=== PATIENT | male | born 1945 | race Caucasian/White ===

== ENCOUNTER → 2016-12-23 | Outpatient (CLI) | payer MEDICARE, OTHER ==
[~2016-12-23] MED LIST: AMIT25TA9 PO; AMLO5TAB2 PO; ATEN-60 PO; ATO40T PO; CALC0.25 OR; CALC500T87 OR; CLOP75TA28 PO; ESOM40CA39 OR; FURO20TA PO; INSLANTI SC; LISI10TA6 OR; METF-312 OR; MYCO500T PO; PROGRAF PO; TACR1CAP4 PO; [UNRECOGNIZED DRUG - OTHER]; [UNRECOGNIZED DRUG - OTHER] PO; [UNRECOGNIZED DRUG - OTHER] PO
== END | disposition home or self-care (01) ==
LOC: Rad HDHVI 13:49
PROVIDERS: ATTEND Internal Medicine Cardiovascular Disease
DX: Z01.810 Encounter for preprocedural cardiovascular examination (principal); I10 Essential (primary) hypertension; I73.89 Other specified peripheral vascular diseases; Z94.1 Heart transplant status; E78.00 Pure hypercholesterolemia, unspecified; J98.11 Atelectasis; I70.0 Atherosclerosis of aorta; Z95.1 Presence of aortocoronary bypass graft
CPT/HCPCS: 71020; 93306

== ENCOUNTER → 2017-02-09 | Outpatient (CLI) | payer MEDICARE, OTHER ==
[~2017-02-09] VITALS: Ht 175.3 cm; Wt 111.1 kg
[~2017-02-09] MED LIST changes: +LOSA50TA6 PO; +OMEG100062 PO; +SERT-274 PO
[2017-02-09 11:10] VITALS: BP 153/95
[2017-02-09 11:45] VITALS: BP 165/98
[2017-02-09 16:24] LABS: Basophils # (auto) 0 uL; Basophils % (auto) 0.4 % (0.0-2.0); Eosinophils # (auto) 0.1 uL; Eosinophils % (auto) 1.2 % (0.0-7.0); Hematocrit 41.6 % (41.0-53.0); Hemoglobin 13.8 g/dL (13.5-17.5); Lymphocytes # (auto) 1.6 uL; Lymphocytes % (auto) 19.9 % (10.0-50.0); Mean Corpuscular Hemoglobin 31.3 pg (28.0-32.0); Mean Corpuscular Hgb Conc. 33.2 g/dL (32.0-36.0); Mean Corpuscular Volume 94.2 fL (80.0-100.0); Mean Platelet Volume 8.7 fL (7.4-10.4); Monocytes # (auto) 0.6 uL; Monocytes % (auto) 7.5 % (0.0-12.0); Neutrophils # (auto) 5.6 uL; Platelet Count (auto) 216 10^3/uL (140-450); Red Cell Distribution Width 15.3 % (11.6-16.0); White Blood Cell 7.8 10^3/uL (4.4-10.8)
[2017-02-09 16:43] LABS: Calcium 8.5 mg/dL (8.5-10.1); Potassium 4.7 mmol/L (3.5-5.1)
[2017-02-09 17:21] LABS: INR 1.05 (0.9-1.15); Prothrombin Time 10.8 sec (9.37-12.3)
== END | disposition home or self-care (01) ==
LOC: CHF HDHVI 10:51
PROVIDERS: ATTEND Internal Medicine Cardiovascular Disease
DX: I10 Essential (primary) hypertension (principal); D64.9 Anemia, unspecified; R79.1 Abnormal coagulation profile
CPT/HCPCS: 36415; 71020; 80048; 84153; 85025; 85610; 85730; 93005; G0463

== ENCOUNTER → 2017-02-10 | Outpatient (CLI) | payer MEDICARE, OTHER ==
[~2017-02-10] MED LIST changes: -AMIT25TA9 PO; -AMLO5TAB2 PO; -ATO40T PO; -CALC0.25 OR; -FURO20TA PO; -LISI10TA6 OR; -METF-312 OR; -PROGRAF PO; -[UNRECOGNIZED DRUG - OTHER] PO; -[UNRECOGNIZED DRUG - OTHER] PO
== END | disposition home or self-care (01) ==
LOC: CATH 09:48
PROVIDERS: ATTEND Internal Medicine Cardiovascular Disease
DX: G45.9 Transient cerebral ischemic attack, unspecified (principal); I10 Essential (primary) hypertension; E11.9 Type 2 diabetes mellitus without complications; M25.519 Pain in unspecified shoulder
CPT/HCPCS: 93880

== ENCOUNTER 2017-02-12 08:45 | Inpatient (IN) | payer MEDICARE, OTHER ==
[~2017-02-12] VITALS: Ht 175.3 cm; Wt 106.0 kg
[2017-02-12] MEDS ORDERED: ANGIOMAX 250 MG VIAL IV ONE (09:55)
[2017-02-12] MEDS ORDERED: IOHEXOL 350 MG/ML 100ML IJ ONE (09:56)
[2017-02-12] MEDS ORDERED: LIDOCAINE 2%HCL (LOCAL ANESTH.) INJ 20ML MDV ONE (09:56)
[2017-02-12] MEDS ORDERED: MIDAZOLAM HCL 1MG/1ML-2 ML VIAL ONE (09:57)
[2017-02-12] MEDS ORDERED: fentaNYL CITRATE 100 MCG/2 ML VL ONE (09:58)
[2017-02-12] MEDS ORDERED: SODIUM CHL 0.9% 50 ML ONE (10:01)
[2017-02-12] MEDS ORDERED: ZOLPIDEM TARTRATE 5 MG TAB PO PRN (13:15)
[2017-02-12] MEDS ORDERED: MORPHINE SULF INJ 2 MG/ML SYRINGE 1ML IV PRN (13:15)
[2017-02-12] MEDS ORDERED: SODIUM CHLORIDE 0.9% 1,000 ML IV SCH (13:15)
[2017-02-12] MEDS ORDERED: DEXTROSE (50%) 50ML SYRG IV PRN (13:15)
[2017-02-12] MEDS ORDERED: NITROGLYCERIN 0.4 MG SL TAB SL PRN ×2 (13:15)
[2017-02-12] MEDS ORDERED: TICAGRELOR 90 MG TAB PO ONE (13:15)
[2017-02-12] MEDS ORDERED: ONDANSETRON HCL 4 MG/2 ML VIAL IV PRN (13:15)
[2017-02-12] MEDS ORDERED: LORazepam 0.5 MG TAB PO PRN (13:15)
[2017-02-12] MEDS ORDERED: HYDROcodone-ACET 5/325MG TAB PO PRN (13:15)
[2017-02-12] MEDS ORDERED: ACETAMINOPHEN 500 MG TAB PO PRN (13:15)
[2017-02-12] MEDS ORDERED: SERTRALINE HCL 50 MG TAB PO ONE (13:30)
[2017-02-12] MEDS ORDERED: amLODIPine BESYLATE 5 MG TAB PO ONE (13:30)
[2017-02-12] MEDS ORDERED: PANTOPRAZOLE 40 MG TAB PO ONE (13:30)
[2017-02-12] MEDS ORDERED: LOSARTAN POTASSIUM 50 MG TAB PO ONE (13:30)
[2017-02-12] MEDS ORDERED: ATENOLOL 25 MG TAB PO ONE (13:30)
[2017-02-12] MEDS ORDERED: TACROLIMUS 1 MG CAP PO ONE (13:30)
[2017-02-12] MEDS ORDERED: MYCOPHENOLATE 500 MG TAB PO ONE (13:30)
[2017-02-12] MEDS ORDERED: INSULIN DETEMIR(LEVEMIR) 1unit/0.01ml Soln (100units/ml) SC ONE (13:30)
[2017-02-12] MEDS ORDERED: CALCIUM W/VIT D (600MG/400IU) TAB PO ONE (13:30)
[2017-02-12] MEDS: ACCU-CHEK COMFORT CURVE STRIP VI SCH ×2 (17:00→21:42)
[2017-02-12] MEDS: TACROLIMUS 1 MG CAP PO SCH (18:00)
[2017-02-12] MEDS: InsuLIN REG 1unit/0.01ml Soln (100units/ml) SC SCH (18:03)
[2017-02-12] MEDS: CALCIUM W/VIT D (600MG/400IU) TAB PO SCH (21:38)
[2017-02-12] MEDS: MYCOPHENOLATE 250 MG CAP PO SCH (21:39)
[2017-02-12] MEDS: TICAGRELOR 90 MG TAB PO SCH (21:39)
[2017-02-12 21:48] VITALS: BP 144/87
[2017-02-12] MEDS ORDERED: MYCOPHENOLATE 500 MG TAB PO SCH (22:00)
[2017-02-12] MEDS ORDERED: CALCIUM CARBONATE 600 MG OR SCH (22:00)
[2017-02-12] MEDS ORDERED: PATIENTS OWN MEDICATION (Omega-3 Fatty Acids (Fish Oil) 1,000 MG) PO SCH (22:00)
[2017-02-12] MEDS ORDERED: InsuLIN REG 1unit/0.01ml Soln (100units/ml) SC SCH (22:00)
[2017-02-13 04:37] VITALS: BP 144/85
[2017-02-13] MEDS: ACCU-CHEK COMFORT CURVE STRIP VI SCH ×3 (06:30→12:22)
[2017-02-13] MEDS: InsuLIN REG 1unit/0.01ml Soln (100units/ml) SC SCH ×3 (06:50→12:19)
[2017-02-13] MEDS ORDERED: TACROLIMUS 1 MG CAP PO SCH (07:00)
[2017-02-13 08:00] VITALS: BP 135/81
[2017-02-13 09:01] VITALS: BP 135/81
[2017-02-13] MEDS ORDERED: FUROSEMIDE 40 MG/4 ML VIAL IV ONE (09:30)
[2017-02-13] MEDS ORDERED: ALBUTEROL SULF 2.5 MG/0.5ML(0.5%) NEB SOLN NEB PRN (09:30)
[2017-02-13] MEDS ORDERED: INSULIN GLARGINE 40 UNIT SC SCH (10:00)
[2017-02-13] MEDS ORDERED: SERTRALINE HCL 50 MG TAB PO SCH (10:00)
[2017-02-13] MEDS ORDERED: PATIENTS OWN MEDICATION (Esomeprazole Magnesium Trihydr (Nexium) 40 MG) OR SCH (10:00)
[2017-02-13] MEDS ORDERED: PANTOPRAZOLE 40 MG TAB PO SCH (10:00)
[2017-02-13] MEDS ORDERED: INSULIN DETEMIR(LEVEMIR) 1unit/0.01ml Soln (100units/ml) SC SCH (10:00)
[2017-02-13] MEDS: amLODIPine BESYLATE 5 MG TAB PO SCH ×2 (10:09→10:49)
[2017-02-13] MEDS: CALCIUM W/VIT D (600MG/400IU) TAB PO SCH (10:10)
[2017-02-13] MEDS: LOSARTAN POTASSIUM 50 MG TAB PO SCH ×2 (10:11→10:49)
[2017-02-13] MEDS: ATENOLOL 25 MG TAB PO SCH ×2 (10:11→10:49)
[2017-02-13] MEDS: MYCOPHENOLATE 250 MG CAP PO SCH (10:12)
[2017-02-13] MEDS: TICAGRELOR 90 MG TAB PO SCH (10:12)
[2017-02-13] MEDS: TACROLIMUS 1 MG CAP PO SCH (12:22)
[2017-02-13 12:39] VITALS: BP 135/81
== END 2017-02-13 13:04 | disposition home or self-care (01) | DRG 247 ==
LOC: CATH 08:45 → TELE-EAST 08:46
PROVIDERS: ADMIT Internal Medicine Cardiovascular Disease; ATTEND Internal Medicine Cardiovascular Disease
PROC: 027034Z Dilation of Coronary Artery, One Artery with Drug-eluting Intraluminal Device, Percutaneous Approach (ICD-10-PCS; principal; 2017-02-12)
PROC: B2111ZZ Fluoroscopy of Multiple Coronary Arteries using Low Osmolar Contrast (ICD-10-PCS; 2017-02-12)
PROC: 4A023N7 Measurement of Cardiac Sampling and Pressure, Left Heart, Percutaneous Approach (ICD-10-PCS; 2017-02-12)
DX: T86.298 Other complications of heart transplant (principal); I25.811 Atherosclerosis of native coronary artery of transplanted heart without angina pectoris; E11.21 Type 2 diabetes mellitus with diabetic nephropathy; E11.40 Type 2 diabetes mellitus with diabetic neuropathy, unspecified; I73.9 Peripheral vascular disease, unspecified; E78.5 Hyperlipidemia, unspecified; I10 Essential (primary) hypertension; Z87.891 Personal history of nicotine dependence
CPT/HCPCS: 36415; 71010; 82565; 82962; 84484; 94640; J1815; J2250; J7507; J7517

== ENCOUNTER → 2017-03-04 | Outpatient (CLI) | payer MEDICARE, OTHER | END | disposition home or self-care (01) | LOC: Rad HDHVI 10:16 | PROVIDERS: ATTEND Internal Medicine Cardiovascular Disease | DX: I50.43 Acute on chronic combined systolic (congestive) and diastolic (congestive) heart failure (principal); I25.5 Ischemic cardiomyopathy | CPT/HCPCS: 93306 ==

== ENCOUNTER → 2017-07-09 | Outpatient (CLI) | payer MEDICARE, OTHER ==
[2017-07-09 12:52] LABS: Albumin 3.7 g/dL (3.4-5.0); Alkaline Phosphatase 93 U/L (45-117); Anion Gap 7 (5-15); Aspartate Aminotransferase 21 U/L (15-37); BUN/Creatinine Ratio 21.6; Bilirubin, Direct < 0.1 mg/dL (0-0.2); Bilirubin, Total 0.4 mg/dL (0.2-1.0); Blood Urea Nitrogen 47 mg/dL (7-18); Calcium 8.8 mg/dL (8.5-10.1); Carbon Dioxide 26 mmol/L (21-32); Chloride 106 mmol/L (98-107); Cholesterol 208 mg/dL (< 200); GFR African American 39 mL/min; GFR Non-African American 32 mL/min; Glucose 231 mg/dL (74-106); HDL Cholesterol 33 mg/dL (40-59); LDL Cholesterol 133 mg/dL (< 100); Magnesium 1.9 mg/dL (1.6-2.6); Potassium 5.2 mmol/L (3.5-5.1); Sodium 139 mmol/L (136-145); Total Protein 7.2 g/dL (6.4-8.2); Triglycerides 304 mg/dL (< 150)
[2017-07-09 14:03] LABS: Basophils # (auto) 0 uL; Basophils % (auto) 0.3 % (0.0-2.0); CONDITION Y; Eosinophils # (auto) 0.1 uL; Eosinophils % (auto) 1.2 % (0.0-7.0); Hematocrit 40.3 % (41.0-53.0); Hemoglobin 13.4 g/dL (13.5-17.5); Lymphocytes # (auto) 1.7 uL; Lymphocytes % (auto) 25.1 % (10.0-50.0); Mean Corpuscular Hemoglobin 32.5 pg (28.0-32.0); Mean Corpuscular Hgb Conc. 33.2 g/dL (32.0-36.0); Mean Corpuscular Volume 97.7 fL (80.0-100.0); Mean Platelet Volume 9.1 fL (7.4-10.4); Monocytes # (auto) 0.5 uL; Monocytes % (auto) 7.4 % (0.0-12.0); Neutrophils # (auto) 4.5 uL; Platelet Count (auto) 283 10^3/uL (140-450); Red Cell Distribution Width 14.8 % (11.6-16.0); White Blood Cell 6.8 10^3/uL (4.4-10.8)
== END | disposition home or self-care (01) ==
LOC: Rad HDHVI 09:23
PROVIDERS: ATTEND Internal Medicine Cardiovascular Disease
DX: I11.0 Hypertensive heart disease with heart failure (principal); I50.22 Chronic systolic (congestive) heart failure; E78.00 Pure hypercholesterolemia, unspecified; K74.1 Hepatic sclerosis; R53.81 Other malaise; R94.4 Abnormal results of kidney function studies; D64.9 Anemia, unspecified; R06.01 Orthopnea
CPT/HCPCS: 36415; 80048; 80061; 80076; 82550; 83735; 84403; 85025; 93306

== ENCOUNTER → 2017-07-15 | Outpatient (CLI) | payer MEDICARE, OTHER ==
[2017-07-15 09:00] VITALS: BP 180/108
[2017-07-15 10:32] LABS: Potassium 5.1 mmol/L (3.5-5.1)
[2017-07-15 11:00] VITALS: BP 169/96
== END | disposition home or self-care (01) ==
LOC: CHF HDHVI 09:16
PROVIDERS: ATTEND Internal Medicine Cardiovascular Disease
DX: E87.5 Hyperkalemia (principal); R94.4 Abnormal results of kidney function studies
CPT/HCPCS: 36415; 82565; 84132; 84520; G0463

== ENCOUNTER → 2017-12-23 | Outpatient (CLI) | payer MEDICARE, OTHER ==
[~2017-12-23] VITALS: Ht 30.5 cm; Wt 0.5 kg
[~2017-12-23] MED LIST changes: +ADENOSINE 90 MG/30 ML INJ IV ONE; +ADENOSINE 91 MG in GIVE UN-DILUTED 0 ML IV ONE
== END | disposition home or self-care (01) ==
LOC: Rad HDHVI 09:24
PROVIDERS: ATTEND Internal Medicine Cardiovascular Disease
DX: I11.0 Hypertensive heart disease with heart failure (principal); I50.9 Heart failure, unspecified; I74.3 Embolism and thrombosis of arteries of the lower extremities; I49.5 Sick sinus syndrome; G62.9 Polyneuropathy, unspecified; E11.9 Type 2 diabetes mellitus without complications; E78.00 Pure hypercholesterolemia, unspecified; Z94.1 Heart transplant status
CPT/HCPCS: 78452; 93005; 93306; 93926; 96374; 96375; A9500; J0153

== ENCOUNTER → 2018-03-24 | Outpatient (CLI) | payer MEDICARE, OTHER ==
[~2018-03-24] MED LIST changes: -ADENOSINE 90 MG/30 ML INJ IV ONE; -ADENOSINE 91 MG in GIVE UN-DILUTED 0 ML IV ONE; +ATEN50TA PO; +AZIL40TA3 PO; +CALC-440 PO; +FENO54TA4 PO; +GABA300C10 PO; +INSU100I25 SC; +INSU1INJ14 SC; +LOSA100T27 PO; +MYCO250C PO
[2018-03-24 10:55] VITALS: BP 151/85
[2018-03-24 11:30] VITALS: BP 129/78
[2018-03-24 16:04] LABS: Basophils # (auto) 0 uL; Basophils % (auto) 0.6 % (0.0-2.0); Eosinophils # (auto) 0.1 uL; Hematocrit 37.3 % (41.0-53.0); Hemoglobin 11.8 g/dL (13.5-17.5); Lymphocytes # (auto) 1.6 uL; Lymphocytes % (auto) 23.3 % (10.0-50.0); Mean Corpuscular Hemoglobin 31.1 pg (28.0-32.0); Mean Corpuscular Hgb Conc. 31.6 g/dL (32.0-36.0); Mean Corpuscular Volume 98.2 fL (80.0-100.0); Monocytes # (auto) 0.6 uL; Monocytes % (auto) 8.2 % (0.0-12.0); Neutrophils # (auto) 4.7 uL; Neutrophils % (auto) 66.9 % (37.0-80.0); Nucleated Red Blood Cells % 0.4 %; Platelet Count (auto) 286 10^3/uL (140-450); White Blood Cell 7.1 10^3/uL (4.4-10.8)
[2018-03-24 16:07] LABS: Calcium 9.3 mg/dL (8.5-10.1)
[2018-03-24 16:09] LABS: BUN/Creatinine Ratio 17.2
[2018-03-24 16:12] LABS: INR 1.05 (0.9-1.15); Partial Thromboplastin Time 28.5 sec (22.64-33.71); Prothrombin Time 11.5 sec (9.37-12.3)
[2018-03-24 16:28] LABS: Potassium 5.7 mmol/L (3.5-5.1)
== END | disposition home or self-care (01) ==
LOC: Rad HDHVI 09:57
PROVIDERS: ATTEND Internal Medicine Cardiovascular Disease
DX: Z01.818 Encounter for other preprocedural examination (principal); I73.9 Peripheral vascular disease, unspecified; E11.9 Type 2 diabetes mellitus without complications; I10 Essential (primary) hypertension; Z87.891 Personal history of nicotine dependence; Z94.1 Heart transplant status
CPT/HCPCS: 36415; 71046; 80048; 85025; 85610; 85730; 93005; G0463; 93926

== ENCOUNTER 2018-04-01 10:53 | Day surgery (SDC) | payer MEDICARE, OTHER ==
[~2018-04-01] VITALS: Ht 175.3 cm; Wt 99.8 kg
[~2018-04-01 10:53] MED LIST changes: -ATEN-60 PO; -CALC500T87 OR; -INSLANTI SC; -LOSA50TA6 PO; -MYCO500T PO; -OMEG100062 PO; -[UNRECOGNIZED DRUG - OTHER]
[2018-04-01] MEDS ORDERED: LIDOCAINE 2%HCL (LOCAL ANESTH.) INJ 20ML MDV ONE (12:39)
[2018-04-01] MEDS ORDERED: IOHEXOL 350 MG/ML 100ML IJ ONE (12:39)
[2018-04-01] MEDS ORDERED: ANGIOMAX 250 MG VIAL IV ONE (13:13)
[2018-04-01] MEDS ORDERED: SODIUM CHL 0.9% 0 ML ONE (13:14)
[2018-04-01] MEDS ORDERED: MIDAZOLAM HCL 1MG/1ML-2 ML VIAL ONE (13:14)
[2018-04-01] MEDS ORDERED: fentaNYL CITRATE 100 MCG/2 ML VL ONE (13:14)
[2018-04-01] MEDS ORDERED: IODIXANOL 320MG/ML 100ML BTL IV ONE (13:16)
[2018-04-01] MEDS ORDERED: diphenhdrAMINE HCL 50 MG/1 ML VL ONE (13:20)
[2018-04-01] MEDS ORDERED: VERAPAMIL 2.5MG/ML INJ 2ML VIAL IV ONE (13:31)
[2018-04-01] MEDS ORDERED: cloNIDine HCL 0.1 MG TAB PO ONE (15:00)
[2018-04-01] MEDS ORDERED: CLOPIDOGREL BISULFATE 75 MG TAB PO ONE (15:00)
== END 2018-04-01 16:00 | disposition home or self-care (01) ==
LOC: CATH 10:53
PROVIDERS: ATTEND Internal Medicine Cardiovascular Disease
DX: I70.201 Unspecified atherosclerosis of native arteries of extremities, right leg (principal); I99.8 Other disorder of circulatory system; T85.898A Other specified complication of other internal prosthetic devices, implants and grafts, initial encounter; J44.9 Chronic obstructive pulmonary disease, unspecified; I10 Essential (primary) hypertension; E78.5 Hyperlipidemia, unspecified; E66.9 Obesity, unspecified; I50.9 Heart failure, unspecified; T86.90 Unspecified complication of unspecified transplanted organ and tissue; Y83.9 Surgical procedure, unspecified as the cause of abnormal reaction of the patient, or of later complication, without mention of misadventure at the time of the procedure; Y92.9 Unspecified place or not applicable; Z95.5 Presence of coronary angioplasty implant and graft; Z94.1 Heart transplant status; Z68.32 Body mass index [BMI] 32.0-32.9, adult
CPT/HCPCS: 36247; 82962; C1769; C1894; J1200; J1644; J2250; J3010; J7030; Q9967; 99152; 99153

== ENCOUNTER → 2018-09-07 | Outpatient (CLI) | payer MEDICARE, OTHER ==
[~2018-09-07] MED LIST changes: +LOSA-49 PO; -LOSA100T27 PO
== END | disposition home or self-care (01) ==
LOC: Rad HDHVI 09:30
PROVIDERS: ATTEND Internal Medicine Cardiovascular Disease
DX: I67.2 Cerebral atherosclerosis (principal); G45.9 Transient cerebral ischemic attack, unspecified
CPT/HCPCS: 70450; 93880

== ENCOUNTER → 2019-02-14 | Outpatient (CLI) | payer MEDICARE, OTHER | END | disposition home or self-care (01) | LOC: Rad HDHVI 16:23 | PROVIDERS: ATTEND Internal Medicine Cardiovascular Disease | DX: I70.0 Atherosclerosis of aorta (principal); I11.0 Hypertensive heart disease with heart failure; J90 Pleural effusion, not elsewhere classified | CPT/HCPCS: 71046 ==

== ENCOUNTER → 2019-02-16 | Outpatient (CLI) | payer MEDICARE, OTHER | END | disposition home or self-care (01) | LOC: Rad HDHVI 11:08 | PROVIDERS: ATTEND Internal Medicine Cardiovascular Disease | DX: J44.9 Chronic obstructive pulmonary disease, unspecified (principal); I50.23 Acute on chronic systolic (congestive) heart failure; I51.7 Cardiomegaly; Z94.1 Heart transplant status | CPT/HCPCS: 83880; 93306; 93880 ==

== ENCOUNTER 2019-04-19 07:12 | Inpatient (IN) | payer MEDICARE, OTHER | END 2019-05-06 17:15 | disposition home or self-care (01) | LOC: TELE-WESTW 04-28 18:32 → ICU WEST 04-20 01:29 → TELE-WESTW 05-04 22:45 → ER 07:12 → TELE 11:01 → ICU WEST 23:30 | PROC: 5A1955Z Respiratory Ventilation, Greater than 96 Consecutive Hours (ICD-10-PCS; principal; ~2019-04-19) | PROC: 0BH17EZ Insertion of Endotracheal Airway into Trachea, Via Natural or Artificial Opening (ICD-10-PCS; ~2019-04-19) | PROC: 05H533Z Insertion of Infusion Device into Right Subclavian Vein, Percutaneous Approach (ICD-10-PCS; ~2019-04-19) | DX: A41.9 Sepsis, unspecified organism (principal); I50.43 Acute on chronic combined systolic (congestive) and diastolic (congestive) heart failure; J96.01 Acute respiratory failure with hypoxia; J96.02 Acute respiratory failure with hypercapnia; N17.0 Acute kidney failure with tubular necrosis; G93.41 Metabolic encephalopathy; I50.21 Acute systolic (congestive) heart failure; J18.9 Pneumonia, unspecified organism; I13.0 Hypertensive heart and chronic kidney disease with heart failure and stage 1 through stage 4 chronic kidney disease, or unspecified chronic kidney disease; E87.2 Acidosis; G93.1 Anoxic brain damage, not elsewhere classified; I25.811 Atherosclerosis of native coronary artery of transplanted heart without angina pectoris; N18.4 Chronic kidney disease, stage 4 (severe); D64.9 Anemia, unspecified; E11.22 Type 2 diabetes mellitus with diabetic chronic kidney disease; E11.42 Type 2 diabetes mellitus with diabetic polyneuropathy; E87.5 Hyperkalemia; E11.41 Type 2 diabetes mellitus with diabetic mononeuropathy; E66.9 Obesity, unspecified; E83.39 Other disorders of phosphorus metabolism; E87.6 Hypokalemia; Z79.02 Long term (current) use of antithrombotics/antiplatelets; Z79.899 Other long term (current) drug therapy; Z95.1 Presence of aortocoronary bypass graft; T45.1X5A Adverse effect of antineoplastic and immunosuppressive drugs, initial encounter; N18.9 Chronic kidney disease, unspecified ==

== ENCOUNTER → 2019-05-13 | Outpatient (CLI) | payer MEDICARE, OTHER ==
[~2019-05-13] MED LIST changes: +ASPI81TA27 PO; -ATEN50TA PO; +ATOR40TA52 PO; -AZIL40TA3 PO; +CARV25TA PO; -FENO54TA4 PO; +FURO20TA PO; -LOSA-49 PO; +MAGNTAB16 PO
[2019-05-13 16:09] LABS: Potassium 5.2 mmol/L (3.5-5.1)
[2019-05-13 16:16] LABS: Albumin 2.7 g/dL (3.4-5.0); BUN/Creatinine Ratio 19.4; Bilirubin, Total 0.2 mg/dL (0.2-1.0); Calcium 8.2 mg/dL (8.5-10.1); Total Protein 6.3 g/dL (6.4-8.2)
[2019-05-13 16:17] LABS: Basophils # (auto) 0 uL; Basophils % (auto) 0.5 % (0.0-2.0); Eosinophils # (auto) 0.2 uL; Eosinophils % (auto) 2.7 % (0.0-7.0); Hematocrit 29.5 % (41.0-53.0); Hemoglobin 9.5 g/dL (13.5-17.5); Lymphocytes # (auto) 1.6 uL; Lymphocytes % (auto) 27.8 % (10.0-50.0); Mean Corpuscular Hemoglobin 29.1 pg (28.0-32.0); Mean Corpuscular Volume 90.8 fL (80.0-100.0); Monocytes # (auto) 0.5 uL; Monocytes % (auto) 8.4 % (0.0-12.0); Neutrophils # (auto) 3.4 uL; Neutrophils % (auto) 60.6 % (37.0-80.0); Platelet Count (auto) 184 10^3/uL (140-450); Red Blood Cells 3.25 10^6/uL (4.5-5.90); Red Cell Distribution Width 15.6 % (11.8-14.3); White Blood Cell 5.7 10^3/uL (4.4-10.8)
== END | disposition home or self-care (01) ==
LOC: Rad HDHVI 14:24
PROVIDERS: ATTEND Internal Medicine Cardiovascular Disease
DX: D64.9 Anemia, unspecified (principal); I11.0 Hypertensive heart disease with heart failure; I50.9 Heart failure, unspecified; I25.10 Atherosclerotic heart disease of native coronary artery without angina pectoris; R00.2 Palpitations
CPT/HCPCS: 36415; 80053; 85025; 93306

== ENCOUNTER → 2019-05-17 | Outpatient (CLI) | payer MEDICARE, OTHER ==
[~2019-05-17] MED LIST changes: +KAYEXALATE PO ONE; +MAGNESIUM CITRATE SOLUTION 300 ML BTL ONE; +MAGNESIUM CITRATE SOLUTION 300 ML BTL PO ONE; +SODIUM POLYSTYRENE SULF 15GM/60ml SUSP or POWDER ONE
--- NOTE | 2019-05-17 10:30 | NUR ---
2 PERSON ASSIST TO RECLINER CHAIR. DYSPNEIC. LIPS DUSKY. IN ATTENDANCE. SPO2 ON ROOM AIR IS 88%.
--- NOTE | 2019-05-17 10:40 | NUR ---
RESPIRATIONS EVEN AND NON LABORED. OXYGEN IN USE AT 2 LPM. SPO2 94%. VS WNL. CLINIC PROVIDER CONSULTED AND ORDERS RECIEVED. IV PLACED TO RIGHT AC 20 GAUGE, LABS DRAWN AND SENT.
[2019-05-17 11:48] LABS: Basophils # (auto) 0 uL; Basophils % (auto) 0.8 % (0.0-2.0); Eosinophils # (auto) 0.1 uL; Eosinophils % (auto) 1.6 % (0.0-7.0); Hematocrit 32.8 % (41.0-53.0); Hemoglobin 10.3 g/dL (13.5-17.5); Lymphocytes # (auto) 1.2 uL; Lymphocytes % (auto) 19.9 % (10.0-50.0); Mean Corpuscular Hgb Conc. 31.3 g/dL (32.0-36.0); Mean Corpuscular Volume 92.8 fL (80.0-100.0); Monocytes # (auto) 0.5 uL; Monocytes % (auto) 8.1 % (0.0-12.0); Neutrophils # (auto) 4.1 uL; Neutrophils % (auto) 69.6 % (37.0-80.0); Platelet Count (auto) 186 10^3/uL (140-450); Red Blood Cells 3.54 10^6/uL (4.5-5.90); Red Cell Distribution Width 15.7 % (11.8-14.3)
[2019-05-17 11:52] LABS: Calcium 8.7 mg/dL (8.5-10.1)
[2019-05-17 11:58] LABS: Albumin 3.1 g/dL (3.4-5.0); BUN/Creatinine Ratio 19.5; Bilirubin, Total 0.3 mg/dL (0.2-1.0); Magnesium 1.8 mg/dL (1.6-2.6); Total Protein 6.8 g/dL (6.4-8.2)
[2019-05-17 13:28] LABS: Potassium 5.8 mmol/L (3.5-5.1)
[2019-05-17 13:50] VITALS: BP 193/84
--- NOTE | 2019-05-17 14:00 | NUR ---
CHF LABS RETURNED AND REVIEWED BY CLINIC PROVIDER. DISCHARGED TO HOME WITH IN ATTENDANCE . IN NO DISTRESS OR DISCOMFORT. Discharge Instructions See e-MAR for any mediations given with this visit. Patient education given on disease process. Patient verbalized understanding. Previous labs reviewed. Patient discharged in stable condition with after care instructions and follow up appointment FOR Thursday05/20/19. MEDICATION ADMINISTRATION KEXALATE 30 GRAMS PO AT 1350 MAG CITRATE 1/2 BOTTLE PO AT 1230
[2019-05-17 16:56] LABS: Urine Blood Negative /uL (Negative); Urine Specific Gravity 1.014 (1.001-1.035)
== END | disposition home or self-care (01) ==
LOC: Rad HDHVI 10:50
PROVIDERS: ATTEND Internal Medicine Cardiovascular Disease
DX: I70.0 Atherosclerosis of aorta (principal); E55.9 Vitamin D deficiency, unspecified; D64.9 Anemia, unspecified; E11.21 Type 2 diabetes mellitus with diabetic nephropathy; E29.1 Testicular hypofunction; I11.0 Hypertensive heart disease with heart failure; I50.9 Heart failure, unspecified; N39.0 Urinary tract infection, site not specified
CPT/HCPCS: 36415; 71046; 80053; 81003; 82306; 83036; 83735; 83880; 84403; 85025; G0463

== ENCOUNTER → 2019-05-20 | Outpatient (CLI) | payer MEDICARE, OTHER ==
[~2019-05-20] VITALS: Ht 1 cm; Wt 0.5 kg
[~2019-05-20] MED LIST changes: +ALBUTEROL SULF 2.5 MG/0.5ML(0.5%) NEB SOLN NEB ONE; +ALBUTEROL SULF 2.5 MG/0.5ML(0.5%) NEB SOLN ONE; +ALLO100T PO; +ALPR0.25 PO; +AMLO5TAB15 PO; +ASPI-404 PO; -ASPI81TA27 PO; +CYANOCOBALAMIN (B-12) 1000 MCG/1 ML VIAL IM ONE; +CYANOCOBALAMIN (B-12) 1000 MCG/1 ML VIAL ONE; +DOCU100T15 PO; +FERR-20 PO; +FLUT250M2 INH; +FURO1TAB33 PO; -FURO20TA PO; +FUROSEMIDE 100 MG/10ML VIAL IV ONE; +FUROSEMIDE 40 MG/4 ML VIAL ONE; +GABA-339 PO; +HYDR-4296 PO; +ISO60SRT PO; -KAYEXALATE PO ONE; -MAGNESIUM CITRATE SOLUTION 300 ML BTL ONE; -MAGNESIUM CITRATE SOLUTION 300 ML BTL PO ONE; +PRE5T PO; +SODIUM ZIRCONIUM CYCL 10 GM PAK ONE; +SODIUM ZIRCONIUM CYCL 10 GM PAK PO ONE
--- NOTE | 2019-05-20 07:58 | NUR ---
PT. TO CHF CLINIC FOR EVAL. AND TX. WT. DOWN 7 LBS. AFTER COMBINATION OF KAYEXALATE AND MAG CITRATE. LAST BM LAST NOC. PT. STATES HE IS FEELING BETTER. NOTED ELEVATION IN B/P, WITH STATING HE HAS TAKEN HIS AM MEDS AT 0630. ORDERS RECEIVED AND CARRIED OUT.
--- NOTE | 2019-05-20 08:10 | NUR ---
IV insertion IV access obtained, via clean sterile technique by inserting 20 gauge catheter at [LFT AC after [1] attempt(s). IV secured properly. No trauma to site. Patient tolerated procedure well. STAT LABS DRAWN AND SENT.
--- NOTE | 2019-05-20 08:42 | NUR ---
MEDS: PT. MEDICATED WITH VIT. B12 1000MCG IM PER MD ORDER.
[2019-05-20 09:22] LABS: Basophils # (auto) 0 uL; Basophils % (auto) 0.4 % (0.0-2.0); Eosinophils # (auto) 0.1 uL; Eosinophils % (auto) 2.4 % (0.0-7.0); Hematocrit 32.9 % (41.0-53.0); Hemoglobin 10.5 g/dL (13.5-17.5); Lymphocytes # (auto) 1.1 uL; Lymphocytes % (auto) 21.9 % (10.0-50.0); Mean Corpuscular Hemoglobin 28.8 pg (28.0-32.0); Mean Corpuscular Hgb Conc. 31.9 g/dL (32.0-36.0); Mean Corpuscular Volume 90.3 fL (80.0-100.0); Monocytes # (auto) 0.5 uL; Monocytes % (auto) 10.2 % (0.0-12.0); Neutrophils # (auto) 3.3 uL; Neutrophils % (auto) 65.1 % (37.0-80.0); Platelet Count (auto) 207 10^3/uL (140-450); Red Blood Cells 3.64 10^6/uL (4.5-5.90); Red Cell Distribution Width 15.6 % (11.8-14.3)
[2019-05-20 09:41] LABS: Magnesium 2.1 mg/dL (1.6-2.6)
[2019-05-20 09:44] LABS: BUN/Creatinine Ratio 16.4; Bilirubin, Total 0.4 mg/dL (0.2-1.0); Total Protein 7.1 g/dL (6.4-8.2)
--- NOTE | 2019-05-20 10:02 | NUR ---
WAITING ON LABS. TACHYPNEA NOTED. OXYGEN APPLIED 2 LPM AND MED NEB ADMINISTERED PER MD ORDER.
[2019-05-20 10:08] LABS: Potassium 6.3 mmol/L (3.5-5.1)
--- NOTE | 2019-05-20 10:45 | NUR ---
STAT LABS RETURNED AND ORDERS RECIEVED AND CARRIED OUT.
--- NOTE | 2019-05-20 11:00 | NUR ---
START IV FLUID TO LEFT AC.
--- NOTE | 2019-05-20 12:44 | NUR ---
LASIX IVP ADMINISTERED.
[2019-05-20 14:03] VITALS: BP 193/90
--- NOTE | 2019-05-20 14:03 | NUR ---
CHF IV TO LEFT AC DCD AND SITE BENIGN POST USE. AFFECT CHEERFUL AND WITHOUT DISTRESS. MEDICATION ADMINISTRATION VIT B12 1000 MCG IM TO LEFT DELTOID PERFORMIST MED NEB 10 MG VIA NEBULIZER OVER 15 MINUTES 0.9 NS 250 ML/HR X 2 HOURS START AT 1100/STOP AT 1300 LOKELMA 2 PACKET TONIGHT ENTRESTO SMPLE 03/01/15
--- NOTE | 2019-07-27 10:52 | NUR ---
LATE ENTRY ADDENDUM FOR 05/20/19 VISIT. KAYEXALATE NOT ADMINISTERED. ATTEMPTED TO PULL, PYXIS COUNTED ONE BUT ACTUAL COUNT AVAILABLE WAS ZERO. LOKELMA ADMINISTERED INSTEAD
== END | disposition home or self-care (01) ==
LOC: CHF HDHVI 08:09
PROVIDERS: ATTEND Internal Medicine Cardiovascular Disease
DX: I13.0 Hypertensive heart and chronic kidney disease with heart failure and stage 1 through stage 4 chronic kidney disease, or unspecified chronic kidney disease (principal); E11.22 Type 2 diabetes mellitus with diabetic chronic kidney disease; N18.4 Chronic kidney disease, stage 4 (severe); I50.23 Acute on chronic systolic (congestive) heart failure; I25.10 Atherosclerotic heart disease of native coronary artery without angina pectoris; I25.2 Old myocardial infarction; E87.5 Hyperkalemia; E83.40 Disorders of magnesium metabolism, unspecified; D64.9 Anemia, unspecified; J44.9 Chronic obstructive pulmonary disease, unspecified; E78.5 Hyperlipidemia, unspecified; E11.21 Type 2 diabetes mellitus with diabetic nephropathy; E11.51 Type 2 diabetes mellitus with diabetic peripheral angiopathy without gangrene; J96.11 Chronic respiratory failure with hypoxia; J96.12 Chronic respiratory failure with hypercapnia; E03.9 Hypothyroidism, unspecified; E66.9 Obesity, unspecified; Z95.1 Presence of aortocoronary bypass graft; Z79.899 Other long term (current) drug therapy; Z87.891 Personal history of nicotine dependence; Z99.81 Dependence on supplemental oxygen; Z79.02 Long term (current) use of antithrombotics/antiplatelets; Z90.49 Acquired absence of other specified parts of digestive tract; Z95.5 Presence of coronary angioplasty implant and graft
CPT/HCPCS: 36415; 71046; 80053; 83735; 83880; 84132; 85025; 94640; 96372; 96374; G0463; J1940; J3420; J7050; J7611; 96360; 96375

== ENCOUNTER → 2019-05-23 | Outpatient (CLI) | payer MEDICARE, OTHER ==
[~2019-05-23] MED LIST changes: -ALBUTEROL SULF 2.5 MG/0.5ML(0.5%) NEB SOLN NEB ONE; -ALBUTEROL SULF 2.5 MG/0.5ML(0.5%) NEB SOLN ONE; -ALLO100T PO; -ALPR0.25 PO; -AMLO5TAB15 PO; -CYANOCOBALAMIN (B-12) 1000 MCG/1 ML VIAL IM ONE; -CYANOCOBALAMIN (B-12) 1000 MCG/1 ML VIAL ONE; -DOCU100T15 PO; -FERR-20 PO; -FLUT250M2 INH; -FUROSEMIDE 100 MG/10ML VIAL IV ONE; +FUROSEMIDE 40 MG/4 ML VIAL IV ONE; -GABA-339 PO; -HYDR-4296 PO; -ISO60SRT PO; -PRE5T PO; +SODIUM CHLORIDE 0.9% 500 ML IV SCH; -SODIUM POLYSTYRENE SULF 15GM/60ml SUSP or POWDER ONE
--- NOTE | 2019-05-23 08:00 | NUR ---
IN TO CLINIC FOR FOLLOWUP FROM HYPERKALEMIA ON THURSDAY. PT REPORTS GOOD RESULTS FROM TREATMENT AND STAT LABS DRAWN AND SENT. AWAIT RESULTS. APPLY OXYGEN AT 2 LPM FOR COMFORT.
[2019-05-23 08:50] VITALS: BP 140/63
[2019-05-23 09:17] LABS: Potassium 5.1 mmol/L (3.5-5.1)
--- NOTE | 2019-05-23 10:00 | NUR ---
LABS RETURNED. CLINIC PROVIDER CONSULTED AND ORDERS RECEIVED AND CARRIED OUT.
--- NOTE | 2019-05-23 10:22 | NUR ---
IV insertion IV access obtained, via clean sterile technique by inserting 22 gauge catheter at [RIGHT AC after [1] attempt(s). IV secured properly. No trauma to site. Patient tolerated procedure well.
[2019-05-23 13:00] VITALS: BP 180/95
--- NOTE | 2019-05-23 13:30 | NUR ---
CHF Discharge Instructions See e-MAR for any mediations given with this visit. Patient education given on disease process. Patient verbalized understanding. Previous labs reviewed. Patient discharged in stable condition with after care instructions and follow up appointment FOR Thursday05/25/19 MEDICATION ADMINISTRATION LOKELMA 10 GRAM PO WITH WATER 0.9 NS 250 ML/HR START AT 1035/STOP AT 1236 (TOTAL 500 ML ADMINISTERED) FUROSEMIDE 40 MG IVP AT 1215
== END | disposition home or self-care (01) ==
LOC: CHF HDHVI 08:05
PROVIDERS: ATTEND Internal Medicine Cardiovascular Disease
DX: I13.0 Hypertensive heart and chronic kidney disease with heart failure and stage 1 through stage 4 chronic kidney disease, or unspecified chronic kidney disease (principal); E11.22 Type 2 diabetes mellitus with diabetic chronic kidney disease; I50.42 Chronic combined systolic (congestive) and diastolic (congestive) heart failure; N18.4 Chronic kidney disease, stage 4 (severe); I25.10 Atherosclerotic heart disease of native coronary artery without angina pectoris; E87.5 Hyperkalemia; R94.4 Abnormal results of kidney function studies; J44.9 Chronic obstructive pulmonary disease, unspecified; J96.10 Chronic respiratory failure, unspecified whether with hypoxia or hypercapnia; E11.21 Type 2 diabetes mellitus with diabetic nephropathy; E03.9 Hypothyroidism, unspecified; E66.9 Obesity, unspecified; E11.41 Type 2 diabetes mellitus with diabetic mononeuropathy; E11.51 Type 2 diabetes mellitus with diabetic peripheral angiopathy without gangrene; Z95.1 Presence of aortocoronary bypass graft; Z95.5 Presence of coronary angioplasty implant and graft; Z79.02 Long term (current) use of antithrombotics/antiplatelets; Z79.899 Other long term (current) drug therapy
CPT/HCPCS: 36415; 82565; 83880; 84132; 84520; 96361; 96374; G0463; J1940; J7040; 96360; 96375

== ENCOUNTER → 2019-05-25 | Outpatient (CLI) | payer MEDICARE, OTHER ==
[2019-05-25] VITALS (8 sets, daily range): BP systolic 173–203; BP diastolic 77–97
[~2019-05-25] MED LIST changes: +ALLO100T PO; +ALPR0.25 PO; +AMLO5TAB15 PO; +DOCU100T15 PO; +FERR-20 PO; +FLUT250M2 INH; -FUROSEMIDE 40 MG/4 ML VIAL IV ONE; -FUROSEMIDE 40 MG/4 ML VIAL ONE; +GABA-339 PO; +HYDR-4296 PO; +ISO60SRT PO; +LIDOCAINE 1% (LOCAL ANESTH.) PF 5ml SDV ONE; +LIDOCAINE 1% HCL (LOCAL ANESTH.) INJ 20ML MDV ID ONE; +PRE5T PO; -SODIUM ZIRCONIUM CYCL 10 GM PAK ONE; -SODIUM ZIRCONIUM CYCL 10 GM PAK PO ONE; +TRIAMCINOLONE 40MG/ML 1ML VIAL IX ONE; +TRIAMCINOLONE 40MG/ML 1ML VIAL ONE
--- NOTE | 2019-05-25 07:50 | NUR ---
PT. TO CHF CLINIC FOR EVAL. AND TX. NEW ORDERS FOR LABS AND IV HYDRATION RECEIVED AND CARRIED OUT. SEE NSG ASSESS.
--- NOTE | 2019-05-25 08:10 | NUR ---
IV insertion IV access obtained, via clean sterile technique by inserting 22 gauge catheter at after attempt(s). IV secured properly. No trauma to site. Patient tolerated procedure well. LABS DRAWN AND SENT.
--- NOTE | 2019-05-25 08:15 | NUR ---
MEDS: .9NS STARTED AT 250 CC/HR. PER MD ORDER.
[2019-05-25 08:47] LABS: Basophils # (auto) 0 uL; Basophils % (auto) 0.5 % (0.0-2.0); Eosinophils # (auto) 0.1 uL; Eosinophils % (auto) 1.7 % (0.0-7.0); Lymphocytes # (auto) 1.3 uL; Lymphocytes % (auto) 23.1 % (10.0-50.0); Mean Corpuscular Hgb Conc. 32.3 g/dL (32.0-36.0); Mean Corpuscular Volume 89.7 fL (80.0-100.0); Monocytes # (auto) 0.5 uL; Monocytes % (auto) 9.5 % (0.0-12.0); Neutrophils # (auto) 3.7 uL; Neutrophils % (auto) 65.2 % (37.0-80.0); Platelet Count (auto) 223 10^3/uL (140-450); Red Blood Cells 3.46 10^6/uL (4.5-5.90); Red Cell Distribution Width 15.4 % (11.8-14.3); White Blood Cell 5.6 10^3/uL (4.4-10.8)
[2019-05-25 08:58] LABS: BUN/Creatinine Ratio 26.8; Calcium 8.5 mg/dL (8.5-10.1); Potassium 4.9 mmol/L (3.5-5.1)
--- NOTE | 2019-05-25 09:44 | NUR ---
CALIBRATED HOME CUFF TO DYNAMAP CUFF AND BP IN CLINIC. 2 BPS COMPARED TO 2 BPS. DETERMINED TO BE WNL, ONLY DISCREPANCY IS USE OF XTRA LARGE CUFF IN CLINIC.
--- NOTE | 2019-05-25 11:45 | NUR ---
DR RÍOS IN TO SEE PATIENT TO BACK OFFICE. ADMINISTERED KENALOG AND LIDOCAINE INTRARTICULAR TO LEFT HAND MIDDLE FINGER. PT TOLERATED FAIR.
--- NOTE | 2019-05-25 11:55 | NUR ---
CHF MEDICATION ADMINISTRATION 0.9 NS 250 ML X 2 HOURS START AT 0815/STOP AT 1010 (TOTAL 500 ML) KENALOG [address] RÍOS AT 1145 LIDOCAINE 1% [address] RÍOS AT 1145 NEW RX FOR IMDUR 60 MG PO BID SENT TO [facility] IN [place]. PT INSTRUCTED TO TAKE ONE TABLET ONLY IN AM DAILY AND MONITOR BLOOD PRESSURE UNTIL FOLLOWUP ON Thursday06/01/19. REPEAT BACK INSTRUCTIONS OBTAINED
--- NOTE | 2019-05-25 12:00 | NUR ---
CHF Discharge Instructions See e-MAR for any mediations given with this visit. Patient education given on disease process. Patient verbalized understanding. Previous labs reviewed. Patient discharged in stable condition with after care instructions and follow up appointment FOR Thursday06/01/19
== END | disposition home or self-care (01) ==
LOC: CHF HDHVI 08:02
PROVIDERS: ATTEND Internal Medicine Cardiovascular Disease
DX: I13.0 Hypertensive heart and chronic kidney disease with heart failure and stage 1 through stage 4 chronic kidney disease, or unspecified chronic kidney disease (principal); I50.42 Chronic combined systolic (congestive) and diastolic (congestive) heart failure; N18.4 Chronic kidney disease, stage 4 (severe); K59.00 Constipation, unspecified; D64.9 Anemia, unspecified; R53.83 Other fatigue; I25.10 Atherosclerotic heart disease of native coronary artery without angina pectoris; I25.2 Old myocardial infarction; J44.9 Chronic obstructive pulmonary disease, unspecified; E78.5 Hyperlipidemia, unspecified; E11.22 Type 2 diabetes mellitus with diabetic chronic kidney disease; E11.21 Type 2 diabetes mellitus with diabetic nephropathy; E11.51 Type 2 diabetes mellitus with diabetic peripheral angiopathy without gangrene; J96.11 Chronic respiratory failure with hypoxia; J96.12 Chronic respiratory failure with hypercapnia; E03.9 Hypothyroidism, unspecified; E66.9 Obesity, unspecified; E11.41 Type 2 diabetes mellitus with diabetic mononeuropathy; Z94.1 Heart transplant status; Z95.1 Presence of aortocoronary bypass graft; Z95.5 Presence of coronary angioplasty implant and graft; Z79.899 Other long term (current) drug therapy; Z79.02 Long term (current) use of antithrombotics/antiplatelets; Z87.891 Personal history of nicotine dependence; Z90.49 Acquired absence of other specified parts of digestive tract
CPT/HCPCS: 36415; 80048; 83880; 85025; 96360; 96361; J3301; J7050; 96366; G0463; J2001

== ENCOUNTER → 2019-06-01 | Outpatient (CLI) | payer MEDICARE, OTHER ==
[~2019-06-01] MED LIST changes: -ALLO100T PO; -ALPR0.25 PO; -AMLO5TAB15 PO; -ASPI-404 PO; +ASPI81TA27 PO; -DOCU100T15 PO; -FERR-20 PO; -FLUT250M2 INH; -FURO1TAB33 PO; +FURO20TA PO; -GABA-339 PO; -HYDR-4296 PO; -ISO60SRT PO; -LIDOCAINE 1% (LOCAL ANESTH.) PF 5ml SDV ONE; -LIDOCAINE 1% HCL (LOCAL ANESTH.) INJ 20ML MDV ID ONE; -PRE5T PO; -SODIUM CHLORIDE 0.9% 500 ML IV SCH; +SODIUM POLYSTYRENE SULF 15GM/60ml SUSP or POWDER ONE; +SODIUM POLYSTYRENE SULF 15GM/60ml SUSP or POWDER PO SCH; +SODIUM ZIRCONIUM CYCL 10 GM PAK ONE; +SODIUM ZIRCONIUM CYCL 10 GM PAK PO ONE; -TRIAMCINOLONE 40MG/ML 1ML VIAL IX ONE; -TRIAMCINOLONE 40MG/ML 1ML VIAL ONE
--- NOTE | 2019-06-01 07:48 | NUR ---
CHF PT ARRIVED AT CHF CLINIC FOR TX/F/U. PT A/O X 3 V/S TAKEN STAT LABS DRAWN
[2019-06-01 08:46] VITALS: BP 162/83
[2019-06-01 08:51] LABS: Basophils # (auto) 0 uL; Basophils % (auto) 0.7 % (0.0-2.0); Eosinophils # (auto) 0.1 uL; Eosinophils % (auto) 1.1 % (0.0-7.0); Hematocrit 32.3 % (41.0-53.0); Hemoglobin 10.4 g/dL (13.5-17.5); Lymphocytes # (auto) 1.2 uL; Mean Corpuscular Hemoglobin 28.9 pg (28.0-32.0); Mean Corpuscular Hgb Conc. 32.3 g/dL (32.0-36.0); Mean Corpuscular Volume 89.5 fL (80.0-100.0); Monocytes # (auto) 0.4 uL; Monocytes % (auto) 7.3 % (0.0-12.0); Neutrophils % (auto) 69.9 % (37.0-80.0); Platelet Count (auto) 282 10^3/uL (140-450); Red Blood Cells 3.61 10^6/uL (4.5-5.90); Red Cell Distribution Width 15.8 % (11.8-14.3); White Blood Cell 5.7 10^3/uL (4.4-10.8)
[2019-06-01 08:58] LABS: Anion Gap 9 (5-15); Blood Urea Nitrogen 47 mg/dL (7-18); Carbon Dioxide 25 mmol/L (21-32); Chloride 107 mmol/L (98-107); Glucose 241 mg/dL (74-106); Potassium 5.5 mmol/L (3.5-5.1); Sodium 141 mmol/L (136-145)
[2019-06-01 09:09] LABS: BUN/Creatinine Ratio 18.7; GFR African American 32 mL/min; GFR Non-African American 27 mL/min
--- NOTE | 2019-06-01 10:00 | NUR ---
RX FOR XANAX 0.25 MG PO BID GIVEN TO PT
[2019-06-01 10:20] VITALS: BP 175/84
--- NOTE | 2019-06-01 10:20 | NUR ---
LABS RETURNED AND CLINIC PROVIDER CONSULTED AND ORDERS RECIEVED. IN ATTENDANCE. DISCHARGED WITHOUT DISTRESS OR DISCOMFORT TO CARE OF . Discharge Instructions See e-MAR for any mediations given with this visit. Patient education given on disease process. Patient verbalized understanding. Previous labs reviewed. Patient discharged in stable condition with after care instructions and follow up appointment FOR Thursday06/06/19 MEDICATION ADMINISTRATION LOKELMA 10 GM PO AT 1000, 2 ADDITIONAL DOSES TODAY AT 1500 AND 2100 KAYEXALATE 15 GM PO NOW AT 1000.
== END | disposition home or self-care (01) ==
LOC: CHF HDHVI 08:06
PROVIDERS: ATTEND Internal Medicine Cardiovascular Disease
DX: D64.9 Anemia, unspecified (principal); I11.0 Hypertensive heart disease with heart failure; I50.9 Heart failure, unspecified; I25.10 Atherosclerotic heart disease of native coronary artery without angina pectoris
CPT/HCPCS: 36415; 80048; 83880; 85025; G0463

== ENCOUNTER → 2019-06-06 | Outpatient (CLI) | payer MEDICARE, OTHER ==
[~2019-06-06] MED LIST changes: +SODIUM POLYSTYRENE SULF 15GM/60ml SUSP or POWDER PO ONE; -SODIUM POLYSTYRENE SULF 15GM/60ml SUSP or POWDER PO SCH; -SODIUM ZIRCONIUM CYCL 10 GM PAK ONE; -SODIUM ZIRCONIUM CYCL 10 GM PAK PO ONE; +[UNRECOGNIZED DRUG - OTHER] PO ONE; +cloNIDine HCL 0.1 MG TAB ONE; +cloNIDine HCL 0.1 MG TAB PO ONE
--- NOTE | 2019-06-06 08:05 | NUR ---
CHF PT ARRIVED TO THE CHF CLINIC FOR FOLLOW FOR EVAL AND TX/ VS OBTAINED 0 DISTRESS
--- NOTE | 2019-06-06 08:15 | NUR ---
LABS STAT LABS DRAWN CBC,BMP,BNP
[2019-06-06 09:31] LABS: Basophils # (auto) 0 uL; Basophils % (auto) 0.7 % (0.0-2.0); Eosinophils # (auto) 0 uL; Eosinophils % (auto) 0.8 % (0.0-7.0); Hematocrit 31.9 % (41.0-53.0); Hemoglobin 10.1 g/dL (13.5-17.5); Lymphocytes # (auto) 1.3 uL; Lymphocytes % (auto) 22.3 % (10.0-50.0); Mean Corpuscular Hemoglobin 28.8 pg (28.0-32.0); Mean Corpuscular Hgb Conc. 31.7 g/dL (32.0-36.0); Mean Corpuscular Volume 90.7 fL (80.0-100.0); Monocytes # (auto) 0.4 uL; Monocytes % (auto) 7.6 % (0.0-12.0); Neutrophils # (auto) 4.1 uL; Neutrophils % (auto) 68.6 % (37.0-80.0); Platelet Count (auto) 227 10^3/uL (140-450); Red Blood Cells 3.52 10^6/uL (4.5-5.90); Red Cell Distribution Width 16.2 % (11.8-14.3); White Blood Cell 5.9 10^3/uL (4.4-10.8)
[2019-06-06 09:54] LABS: BUN/Creatinine Ratio 21.5; Calcium 8.3 mg/dL (8.5-10.1); Potassium 5.4 mmol/L (3.5-5.1)
[2019-06-06 10:45] VITALS: BP 190/96
--- NOTE | 2019-06-06 10:45 | NUR ---
Discharge Instructions See e-MAR for any mediations given with this visit. Patient education given on disease process. Patient verbalized understanding. Previous labs reviewed. Patient discharged in stable condition with after care instructions and follow up appointment. MEDICATIONS KAEXYLATE 15 GRAM PO X 1 CLONODINE 0.1 MG PO X 1
== END | disposition home or self-care (01) ==
LOC: CHF HDHVI 08:12
PROVIDERS: ATTEND Internal Medicine Cardiovascular Disease
DX: D64.9 Anemia, unspecified (principal); I11.0 Hypertensive heart disease with heart failure; I50.9 Heart failure, unspecified
CPT/HCPCS: 36415; 80048; 83880; 85025; G0463

== ENCOUNTER → 2019-06-07 | Outpatient (CLI) | payer MEDICARE, OTHER ==
[~2019-06-07] MED LIST changes: -SODIUM POLYSTYRENE SULF 15GM/60ml SUSP or POWDER ONE; -SODIUM POLYSTYRENE SULF 15GM/60ml SUSP or POWDER PO ONE; -[UNRECOGNIZED DRUG - OTHER] PO ONE; -cloNIDine HCL 0.1 MG TAB PO ONE
[2019-06-07 10:00] VITALS: BP 200/95
--- NOTE | 2019-06-07 10:00 | NUR ---
PT. TO CHF CLINIC FOR EVAL. AND TX FOR PERSISTANT UNCONTROLLED HTN, AND ABNORMAL LABS. APPT. HAS BEEN MADE WITH DR. HERNÁNDEZ THIS AM. AT BEDSIDE. NOTED ELEVATION IN B/P 200/95. SEE NSG ASSESS. STAT LABS TO BE DRAWN AND SENT PER MD ORDER.
[2019-06-07 11:29] LABS: Potassium 5.3 mmol/L (3.5-5.1)
--- NOTE | 2019-06-07 11:45 | NUR ---
PT. TO AND FROM DR. HERNÁNDEZ APPT. WITH THIS RN PRESENT WITH STAT LAB RESULTS AND LAB TRENDS REVIEWED WITH DR. HERNÁNDEZ. NEW MED ORDERS RECEIVED AND CARRIED OUT.
--- NOTE | 2019-06-07 12:00 | NUR ---
MEDS: PT. MEDICATED WITH CATAPRESS 0.1MG PO PER MD ORDER. B/P 201/105, 75, 18. NO OTHER C/O BY PT. REMAINS AT CHAIRSIDE.
--- NOTE | 2019-06-07 12:40 | NUR ---
MEDS: PT MEDICATED WITH 2ND CATAPRESS 0.1MG PO PER MD ORDER. B/P 189/103, 74, 18. NAD NOTED.
--- NOTE | 2019-06-07 14:00 | NUR ---
MED REC: NEW RX FOR CLONIDINE 0.1MG Q 4 HRS PRN FOR SBP GREATER THAN 160, HYDROLAZINE 25MG PO Q8 HRS, IMDUR 30 MG PO BID, AND NORVASC 5 MG PO Q DAY CALLED TO PT'S PHARMACY AND EXPLAINED IN DETAIL WITH PT. AND SPOUSE. PT TO STOP ENTRESTO. TO TAKE B/P EVERY 4 HRS AND LOG DATA FOR FOLLOW UP VISIT. VERBALIZED MED REC CHANGES.
[2019-06-07 14:30] VITALS: BP 158/84
--- NOTE | 2019-06-07 14:30 | NUR ---
Discharge Instructions See e-MAR for any mediations given with this visit. Patient education given on disease process. Patient verbalized understanding. Previous labs reviewed. Patient discharged in stable condition with after care instructions and follow up appointment. MANUAL B/P 158/84. PT. WITH NO C/O.
--- NOTE | 2019-06-07 14:30 | NUR ---
Discharge Instructions See e-MAR for any mediations given with this visit. Patient education given on disease process. Patient verbalized understanding. Previous labs reviewed. Patient discharged in stable condition with after care instructions and follow up appointment. MANUAL B/P 158/84 BY THIS RN. PT. WITH NO C/O.
--- NOTE | 2019-06-09 13:32 | NUR ---
MEDS: PT. MEDICATED WITH 3RD CATAPRESS 0.1MG PO PER MD ORDER. 184/100 Addendum: 06/09/19 at 3449 by Lucas Lopez RN [place] THIS IS LATE ENTRY FOR 06/07/19 AT 6349
== END | disposition home or self-care (01) ==
LOC: LAB 10:07
PROVIDERS: ATTEND Internal Medicine Cardiovascular Disease
DX: E87.6 Hypokalemia (principal); R94.4 Abnormal results of kidney function studies; I25.10 Atherosclerotic heart disease of native coronary artery without angina pectoris; I13.0 Hypertensive heart and chronic kidney disease with heart failure and stage 1 through stage 4 chronic kidney disease, or unspecified chronic kidney disease; E11.22 Type 2 diabetes mellitus with diabetic chronic kidney disease; I50.9 Heart failure, unspecified; N18.9 Chronic kidney disease, unspecified; Z79.899 Other long term (current) drug therapy; Z94.1 Heart transplant status
CPT/HCPCS: 36415; 80197; 82542; 82565; 84132; 84520; G0463

== ENCOUNTER → 2019-06-10 | Outpatient (CLI) | payer MEDICARE, OTHER ==
[~2019-06-10] MED LIST changes: +ALLO100T PO; +ALPR0.25 PO; +AMLO5TAB15 PO; +ASPI-404 PO; -ASPI81TA27 PO; +DOCU100T15 PO; +FERR-20 PO; +FLUT250M2 INH; +FURO1TAB33 PO; -FURO20TA PO; +GABA-339 PO; +HYDR-4296 PO; +ISO60SRT PO; +PRE5T PO; +SODIUM CHLORIDE 0.9% 1,000 ML IV SCH; -cloNIDine HCL 0.1 MG TAB ONE
[2019-06-10 09:46] LABS: BUN/Creatinine Ratio 21.7; Calcium 8.4 mg/dL (8.5-10.1)
[2019-06-10 09:58] LABS: Potassium 5.8 mmol/L (3.5-5.1)
[2019-06-10 12:05] VITALS: BP 169/86
--- NOTE | 2019-06-10 12:05 | NUR ---
IN FOR FOLLOWUP FOR HYPERKALEMIA. LABS DRAWN AND SENT. . UPON RETURN OF STAT LABS, CLINIC PROVIDER CONSULTED AND ORDERS RECIEVED AND CARRIED OUT. IV PLACED TO RIGHT AC. STARTED IV FLUIDS AND ADMINISTERED OVER 1 HOUR. NEW RX FOR LOKELMA ORDERED BID. FOLLOWUP ON THURSDAY WITH DR HERNÁNDEZ. MEDICATION ADMINISTRATION 0.9 NS 250ML IV START AT 1100/STOP AT 1200
== END | disposition home or self-care (01) ==
LOC: CHF HDHVI 08:09
PROVIDERS: ATTEND Internal Medicine Cardiovascular Disease
DX: I13.0 Hypertensive heart and chronic kidney disease with heart failure and stage 1 through stage 4 chronic kidney disease, or unspecified chronic kidney disease (principal); I50.23 Acute on chronic systolic (congestive) heart failure; N18.4 Chronic kidney disease, stage 4 (severe); I25.10 Atherosclerotic heart disease of native coronary artery without angina pectoris; I25.2 Old myocardial infarction; J44.9 Chronic obstructive pulmonary disease, unspecified; E78.5 Hyperlipidemia, unspecified; E87.5 Hyperkalemia; E11.22 Type 2 diabetes mellitus with diabetic chronic kidney disease; E11.21 Type 2 diabetes mellitus with diabetic nephropathy; E11.65 Type 2 diabetes mellitus with hyperglycemia; E11.51 Type 2 diabetes mellitus with diabetic peripheral angiopathy without gangrene; J96.11 Chronic respiratory failure with hypoxia; J96.12 Chronic respiratory failure with hypercapnia; E03.9 Hypothyroidism, unspecified; E66.9 Obesity, unspecified; Z95.5 Presence of coronary angioplasty implant and graft; Z90.49 Acquired absence of other specified parts of digestive tract; Z94.1 Heart transplant status; Z95.1 Presence of aortocoronary bypass graft; Z79.02 Long term (current) use of antithrombotics/antiplatelets; Z79.899 Other long term (current) drug therapy; Z87.891 Personal history of nicotine dependence
CPT/HCPCS: 36415; 80048; 83880; 96360; G0463; J7030

== ENCOUNTER → 2019-06-14 | Outpatient (CLI) | payer MEDICARE, OTHER ==
[~2019-06-14] MED LIST changes: -ALLO100T PO; -ALPR0.25 PO; -AMLO5TAB15 PO; -DOCU100T15 PO; -FERR-20 PO; -FLUT250M2 INH; -GABA-339 PO; -HYDR-4296 PO; -ISO60SRT PO; -PRE5T PO; -SODIUM CHLORIDE 0.9% 1,000 ML IV SCH
[2019-06-14 14:00] LABS: BUN/Creatinine Ratio 19.6; Calcium 8.5 mg/dL (8.5-10.1)
== END | disposition home or self-care (01) ==
LOC: CHF HDHVI 09:21
PROVIDERS: ATTEND Internal Medicine Cardiovascular Disease
DX: I70.0 Atherosclerosis of aorta (principal); I11.0 Hypertensive heart disease with heart failure; I50.9 Heart failure, unspecified; J98.4 Other disorders of lung; J90 Pleural effusion, not elsewhere classified; J98.11 Atelectasis
CPT/HCPCS: 36415; 71250; 80048; 83880

== ENCOUNTER → 2019-08-23 | Outpatient (CLI) | payer MEDICARE, OTHER ==
[~2019-08-23] MED LIST changes: +ALLO100T PO; +ALPR0.25 PO; +AMLO5TAB15 PO; +DOCU100T15 PO; +FERR-20 PO; +FLUT250M2 INH; +GABA-339 PO; -GABA300C10 PO; +HYDR-4296 PO; +ISO60SRT PO; +PRE5T PO
[2019-08-23 10:00] VITALS: BP 136/67
--- NOTE | 2019-08-23 10:00 | NUR ---
CHF PT IN CHF CLINIC DARK STOOLS AND FOLLOW UP FROM HOSPITAL VISIT
[2019-08-23 10:30] VITALS: BP 138/75
--- NOTE | 2019-08-23 10:30 | NUR ---
Discharge Instructions See e-MAR for any mediations given with this visit. Patient education given on disease process. Patient verbalized understanding. Previous labs reviewed. Patient discharged in stable condition with after care instructions and follow up appointment.
[2019-08-23 10:50] LABS: Basophils # (auto) 0.1 uL; Basophils % (auto) 0.8 % (0.0-2.0); Eosinophils # (auto) 0 uL; Eosinophils % (auto) 0.7 % (0.0-7.0); Hematocrit 26.2 % (41.0-53.0); Hemoglobin 8.6 g/dL (13.5-17.5); Lymphocytes # (auto) 1.1 uL; Lymphocytes % (auto) 15.7 % (10.0-50.0); Mean Corpuscular Hemoglobin 27.6 pg (28.0-32.0); Mean Corpuscular Hgb Conc. 32.8 g/dL (32.0-36.0); Mean Corpuscular Volume 84.4 fL (80.0-100.0); Monocytes # (auto) 0.6 uL; Monocytes % (auto) 8.1 % (0.0-12.0); Neutrophils # (auto) 5.4 uL; Neutrophils % (auto) 74.7 % (37.0-80.0); Platelet Count (auto) 269 10^3/uL (140-450); Red Cell Distribution Width 18.1 % (11.8-14.3); White Blood Cell 7.2 10^3/uL (4.4-10.8)
== END | disposition home or self-care (01) ==
LOC: Rad HDHVI 09:54
PROVIDERS: ATTEND Internal Medicine Cardiovascular Disease
DX: D64.9 Anemia, unspecified (principal)
CPT/HCPCS: 36415; 85025; G0463

== ENCOUNTER → 2019-08-30 | Outpatient (CLI) | payer MEDICARE, OTHER ==
[~2019-08-30] MED LIST changes: +FURO80TA3 PO; +PRED1PAK7 PO; +cefTRIAXone 1GM/50ML D5W 50 ML IV SCH; +cefTRIAXone SOD 1,000 MG VL ONE
--- NOTE | 2019-08-30 11:56 | NUR ---
CHF PT ARRIVED AT THE CHF CLINIC FOR RESP DISTRESS. PT O2 SATS 79% ON ROOM . PLACED ON 2 LITERS O2 INCREASED TO 93%. OTHER VSS STABLE XRAY ORDERED
[2019-08-30 12:24] LABS: Basophils # (auto) 0 uL; Basophils % (auto) 0.6 % (0.0-2.0); Eosinophils # (auto) 0 uL; Eosinophils % (auto) 0.8 % (0.0-7.0); Hematocrit 26.6 % (41.0-53.0); Hemoglobin 8.7 g/dL (13.5-17.5); Lymphocytes # (auto) 0.7 uL; Lymphocytes % (auto) 12.3 % (10.0-50.0); Mean Corpuscular Hemoglobin 28.4 pg (28.0-32.0); Mean Corpuscular Hgb Conc. 32.6 g/dL (32.0-36.0); Mean Corpuscular Volume 86.9 fL (80.0-100.0); Monocytes # (auto) 0.4 uL; Monocytes % (auto) 7.8 % (0.0-12.0); Neutrophils # (auto) 4.2 uL; Neutrophils % (auto) 78.5 % (37.0-80.0); Nucleated Red Blood Cells % 0.2 %; Platelet Count (auto) 263 10^3/uL (140-450); Red Blood Cells 3.06 10^6/uL (4.5-5.90); Red Cell Distribution Width 19.1 % (11.8-14.3); White Blood Cell 5.4 10^3/uL (4.4-10.8)
[2019-08-30 12:46] LABS: Calcium 8.2 mg/dL (8.5-10.1); Potassium 4.1 mmol/L (3.5-5.1)
[2019-08-30 12:49] LABS: BUN/Creatinine Ratio 31.1; Bilirubin, Total 0.4 mg/dL (0.2-1.0); Total Protein 6.4 g/dL (6.4-8.2)
--- NOTE | 2019-08-30 13:10 | NUR ---
CHF XRAY COMPLETE
--- NOTE | 2019-08-30 13:15 | NUR ---
Clinic Provider Clinic Provider updated with patient status new orders received and carried out.
[2019-08-30 14:00] VITALS: BP 124/74
--- NOTE | 2019-08-30 14:00 | NUR ---
Discharge Instructions See e-MAR for any mediations given with this visit. Patient education given on disease process. Patient verbalized understanding. Previous labs reviewed. Patient discharged in stable condition with after care instructions and follow up appointment. medications MED NEB ROCEPHIN IV
== END | disposition home or self-care (01) ==
LOC: CHF HDHVI 11:00
PROVIDERS: ATTEND Internal Medicine Cardiovascular Disease
DX: I13.2 Hypertensive heart and chronic kidney disease with heart failure and with stage 5 chronic kidney disease, or end stage renal disease (principal); E11.22 Type 2 diabetes mellitus with diabetic chronic kidney disease; N18.5 Chronic kidney disease, stage 5; I50.42 Chronic combined systolic (congestive) and diastolic (congestive) heart failure; R53.83 Other fatigue; I25.10 Atherosclerotic heart disease of native coronary artery without angina pectoris; J44.9 Chronic obstructive pulmonary disease, unspecified; E11.21 Type 2 diabetes mellitus with diabetic nephropathy; E11.51 Type 2 diabetes mellitus with diabetic peripheral angiopathy without gangrene; J96.11 Chronic respiratory failure with hypoxia; J96.12 Chronic respiratory failure with hypercapnia; Z99.81 Dependence on supplemental oxygen; Z79.02 Long term (current) use of antithrombotics/antiplatelets; Z79.82 Long term (current) use of aspirin; Z79.51 Long term (current) use of inhaled steroids; Z79.4 Long term (current) use of insulin; Z79.52 Long term (current) use of systemic steroids; Z79.899 Other long term (current) drug therapy; Z87.891 Personal history of nicotine dependence; Z95.1 Presence of aortocoronary bypass graft; Z95.5 Presence of coronary angioplasty implant and graft; Z86.73 Personal history of transient ischemic attack (TIA), and cerebral infarction without residual deficits
CPT/HCPCS: 36415; 71046; 80053; 83880; 85025; 94640; 96374; G0463; J0696; J7060

== ENCOUNTER → 2019-08-31 | Outpatient (CLI) | payer MEDICARE, OTHER ==
[~2019-08-31] MED LIST changes: +CYANOCOBALAMIN (B-12) 1000 MCG/1 ML VIAL IM ONE; +CYANOCOBALAMIN (B-12) 1000 MCG/1 ML VIAL ONE; +cefTRIAXone 1GM/50ML D5W 50 ML IV ONE; -cefTRIAXone 1GM/50ML D5W 50 ML IV SCH; +cefTRIAXone SOD 1,000 MG VL IV ONE
[2019-08-31 09:00] VITALS: BP_SYST 121; BP_SYST 146; BP_DIAS 76; BP_DIAS 87
--- NOTE | 2019-08-31 09:00 | NUR ---
IN TO CLINIC FOR SECOND DOSE OF IV ANTIBIOTIC. IV ADMINISTRATION TOLERATED WELL. PT OXYGENATING BETTER TODAY. OXYGEN IN USE FROM HOME AND IN BETWEEN CAR AND CLINIC WELL. DISCHARGED TO CARE OF IN NO DISTRESS OR DISCOMFORT. Addendum: 09/20/19 at 1603 by RADHA LEIVA RN ME LATE ENTRY FOR 09/01/19 ROCEPHIN 1 GRAM IVP
== END | disposition home or self-care (01) ==
LOC: CHF HDHVI 08:22
PROVIDERS: ATTEND Internal Medicine
DX: J18.9 Pneumonia, unspecified organism (principal); I13.2 Hypertensive heart and chronic kidney disease with heart failure and with stage 5 chronic kidney disease, or end stage renal disease; E11.22 Type 2 diabetes mellitus with diabetic chronic kidney disease; N18.5 Chronic kidney disease, stage 5; I50.42 Chronic combined systolic (congestive) and diastolic (congestive) heart failure; I25.10 Atherosclerotic heart disease of native coronary artery without angina pectoris; J44.9 Chronic obstructive pulmonary disease, unspecified; J96.12 Chronic respiratory failure with hypercapnia; E11.21 Type 2 diabetes mellitus with diabetic nephropathy; E11.51 Type 2 diabetes mellitus with diabetic peripheral angiopathy without gangrene; J96.11 Chronic respiratory failure with hypoxia; Z99.81 Dependence on supplemental oxygen; Z79.02 Long term (current) use of antithrombotics/antiplatelets; Z79.4 Long term (current) use of insulin; Z79.899 Other long term (current) drug therapy; Z79.51 Long term (current) use of inhaled steroids; Z79.52 Long term (current) use of systemic steroids; Z87.891 Personal history of nicotine dependence; Z95.1 Presence of aortocoronary bypass graft; Z95.5 Presence of coronary angioplasty implant and graft; Z86.73 Personal history of transient ischemic attack (TIA), and cerebral infarction without residual deficits
CPT/HCPCS: 96372; 96374; G0463; J0696; J3420; J7060

== ENCOUNTER → 2019-09-01 | Outpatient (CLI) | payer MEDICARE, OTHER ==
[~2019-09-01] MED LIST changes: -CYANOCOBALAMIN (B-12) 1000 MCG/1 ML VIAL IM ONE; -CYANOCOBALAMIN (B-12) 1000 MCG/1 ML VIAL ONE; -cefTRIAXone SOD 1,000 MG VL IV ONE; -cefTRIAXone SOD 1,000 MG VL ONE
[2019-09-01 09:00] VITALS: BP 136/94
[2019-09-01 09:20] VITALS: BP 136/94
[2019-09-01 09:30] VITALS: BP 136/94
--- NOTE | 2019-09-01 09:30 | NUR ---
IN TO CLINIC WITH IN ATTENDANCE. OXYGEN IN USE. AFFECT TALKATIVE AND CHEERFUL. MEDICATED WITH IV ROCEPHIN OVER 5 MINUTES AFTER LABS DRAWN. TOLERATED WELL. BP BORDERLINE HIGH BUT PT REPORTS JUST TAKING HIS MEDS NOW. DISCHARGED TO SELF CARE WITH IN ATTENDANCE. MEDICATION ADMINISTRATION ROCEPHIN 1 GRAM IVP OVER 5 MINUTES
[2019-09-01 12:33] LABS: Basophils # (auto) 0 uL; Basophils % (auto) 0.9 % (0.0-2.0); Eosinophils # (auto) 0.2 uL; Eosinophils % (auto) 4.5 % (0.0-7.0); Hematocrit 26.3 % (41.0-53.0); Hemoglobin 8.5 g/dL (13.5-17.5); Lymphocytes # (auto) 0.8 uL; Lymphocytes % (auto) 16.7 % (10.0-50.0); Mean Corpuscular Hemoglobin 28.1 pg (28.0-32.0); Mean Corpuscular Hgb Conc. 32.2 g/dL (32.0-36.0); Mean Corpuscular Volume 87.2 fL (80.0-100.0); Monocytes # (auto) 0.6 uL; Monocytes % (auto) 11.5 % (0.0-12.0); Neutrophils # (auto) 3.4 uL; Neutrophils % (auto) 66.4 % (37.0-80.0); Platelet Count (auto) 264 10^3/uL (140-450); Red Blood Cells 3.02 10^6/uL (4.5-5.90); White Blood Cell 5.1 10^3/uL (4.4-10.8)
[2019-09-01 12:52] LABS: Potassium 4.2 mmol/L (3.5-5.1)
[2019-09-01 13:02] LABS: Albumin 2.9 g/dL (3.4-5.0); BUN/Creatinine Ratio 29.2; Bilirubin, Total 0.2 mg/dL (0.2-1.0); Calcium 8.1 mg/dL (8.5-10.1); Magnesium 2.6 mg/dL (1.6-2.6); Total Protein 6.1 g/dL (6.4-8.2)
== END | disposition home or self-care (01) ==
LOC: CHF HDHVI 08:57
PROVIDERS: ATTEND Internal Medicine Cardiovascular Disease
DX: I13.2 Hypertensive heart and chronic kidney disease with heart failure and with stage 5 chronic kidney disease, or end stage renal disease (principal); E11.22 Type 2 diabetes mellitus with diabetic chronic kidney disease; N18.5 Chronic kidney disease, stage 5; I50.32 Chronic diastolic (congestive) heart failure; I25.10 Atherosclerotic heart disease of native coronary artery without angina pectoris; J18.9 Pneumonia, unspecified organism; D64.9 Anemia, unspecified; E83.40 Disorders of magnesium metabolism, unspecified; J96.12 Chronic respiratory failure with hypercapnia; E11.21 Type 2 diabetes mellitus with diabetic nephropathy; E11.51 Type 2 diabetes mellitus with diabetic peripheral angiopathy without gangrene; J44.9 Chronic obstructive pulmonary disease, unspecified; Z99.81 Dependence on supplemental oxygen; Z79.02 Long term (current) use of antithrombotics/antiplatelets; Z79.82 Long term (current) use of aspirin; Z79.52 Long term (current) use of systemic steroids; Z79.51 Long term (current) use of inhaled steroids; Z79.4 Long term (current) use of insulin; Z79.899 Other long term (current) drug therapy; Z87.891 Personal history of nicotine dependence; Z95.1 Presence of aortocoronary bypass graft; Z95.5 Presence of coronary angioplasty implant and graft; Z86.73 Personal history of transient ischemic attack (TIA), and cerebral infarction without residual deficits
CPT/HCPCS: 36415; 80053; 83735; 83880; 85025; 96374; G0463; J0696

== ENCOUNTER → 2019-09-02 | Outpatient (CLI) | payer MEDICARE, OTHER ==
[~2019-09-02] MED LIST changes: -cefTRIAXone 1GM/50ML D5W 50 ML IV ONE
== END | disposition home or self-care (01) ==
LOC: CHF HDHVI 08:32
PROVIDERS: ATTEND Internal Medicine Cardiovascular Disease
DX: I70.0 Atherosclerosis of aorta (principal); J90 Pleural effusion, not elsewhere classified; I11.0 Hypertensive heart disease with heart failure; I50.9 Heart failure, unspecified; J98.11 Atelectasis
CPT/HCPCS: 71046

== ENCOUNTER 2019-09-21 12:35 | Inpatient (IN) | payer MEDICARE, OTHER ==
[~2019-09-21] VITALS: Ht 175.3 cm; Wt 103.7 kg
[~2019-09-21 12:35] MED LIST changes: -FURO80TA3 PO; -PRED1PAK7 PO
--- NOTE | 2019-09-21 12:42 | NUR ---
RECEIVED REPORT FROM STAFF AT DR. RÍOS'S OFFICE.
--- NOTE | 2019-09-21 13:30 | NUR ---
Direct Admit Note KVNG SOTO admitted to Telemetry unit as a direct admit per MD order. Patient oriented to EVERETT BENÍTEZ, primary RN, unit, room, bed, and unit policies regarding patient care and visiting hours. Patient now on continuous telemetry monitoring, tele box # [id number] and telemetry reading on arrival to unit is SINUS RHYTHM IN THE 90s. Patient placed on bedside oxygen, weighed by bedscale and encouraged to call if they need something. All questions and concerns addressed, patient verbalized understanding. MD notified of patients arrival and admit orders received.
[2019-09-21] MEDS ORDERED: LACTULOSE 20Gm/30ML SOLN PO PRN (14:30)
[2019-09-21] MEDS ORDERED: FUROSEMIDE INJECTION 250 MG in SODIUM CHL 0.9% 225 ML IV SCH (14:30)
[2019-09-21] MEDS ORDERED: DEXTROSE (50%) 50ML SYRG IV PRN (14:30)
[2019-09-21] MEDS ORDERED: DOPamine 1600MCG/ML D5W 250 ML IV SCH (14:30)
[2019-09-21 16:24] LABS: BUN/Creatinine Ratio 27.6; Calcium 8.1 mg/dL (8.5-10.1)
[2019-09-21 16:34] VITALS: BP 138/87
[2019-09-21 17:20] VITALS: BP 137/68
[2019-09-21] MEDS: ACCU-CHEK COMFORT CURVE STRIP VI SCH ×2 (17:24→21:28)
[2019-09-21] MEDS: InsuLIN REG 1unit/0.01ml Soln (100units/ml) SC SCH ×2 (17:25→21:28)
--- NOTE | 2019-09-21 18:50 | NUR ---
WOUND PHOTOS TAKEN.
--- NOTE | 2019-09-21 19:30 | NUR ---
OPENING NOTE REPORT RECEIVED FROM DAY SHIFT RN PATIENT IS A/OX4, RESTING IN BED. PATIENT IS ON 10L OXYGEN WITH OXYMIZER IN PLACE, SPO2 AT 93%. PATIENT BECOMES SOB WITH ANY EXERTION. PATIENT RUNNING IV LASIX AT 10ML/HR VIA LEFT AC IV. PENDING A SECOND LINE TO BE PLACED TO START DOPAMINE ORDERED BY MD. SUTURES NOTED TO RIGHT FOREARM AND LEFT SIDE OF FACE NEAR EAR. PATIENT STATES HE HAD SKIN CANCER AND ABOUT A WEEK AGO HAD SOME SKIN REMOVED. SUTURES INTACT, NO OPEN AREAS. PATIENT ALSO HAS SOME SMALL CUTS AND SCRAPES NOTED TO LEFT HAND/FINGERS. PATIENT STATES HE IS A OBRIEN AND ACCIDENTLY CUT HIMSELF A FEW DAYS AGO. PICTURES ALREADY TAKEN BY DAYSHIFT ADMITTING RN. POC DISCUSSED FOR TONIGHT AND ALL QUESTIONS. WILL START SECOND IV LINE FOR PENDING MEDICATION. FALL PRECAUTIONS IN PLACE. ALL BELONGINGS WITHIN REACH, CALL LIGHT WITHIN REACH.
[2019-09-21] MEDS: TACROLIMUS 1 MG CAP PO SCH (19:57)
[2019-09-21 20:01] LABS: Basophils # (auto) 0 uL; Basophils % (auto) 0.3 % (0.0-2.0); Eosinophils # (auto) 0 uL; Eosinophils % (auto) 0.1 % (0.0-7.0); Hematocrit 27.7 % (41.0-53.0); Hemoglobin 8.6 g/dL (13.5-17.5); Lymphocytes # (auto) 0.5 uL; Lymphocytes % (auto) 9.3 % (10.0-50.0); Mean Corpuscular Hemoglobin 28.3 pg (28.0-32.0); Mean Corpuscular Hgb Conc. 31.1 g/dL (32.0-36.0); Mean Corpuscular Volume 90.9 fL (80.0-100.0); Monocytes # (auto) 0.4 uL; Neutrophils # (auto) 4.4 uL; Neutrophils % (auto) 83.3 % (37.0-80.0); Nucleated Red Blood Cells % 0.2 %; Platelet Count (auto) 240 10^3/uL (140-450); Red Blood Cells 3.05 10^6/uL (4.5-5.90); White Blood Cell 5.3 10^3/uL (4.4-10.8)
[2019-09-21 20:04] LABS: Red Cell Distribution Width 20.8 % (11.8-14.3)
--- NOTE | 2019-09-21 20:30 | NUR ---
IV insertion IV access obtained, via clean sterile technique by inserting 22 gauge catheter at RIGHT WRIST after 2 attempt(s). IV secured properly. No trauma to site. Patient tolerated well. WILL START DOPAMINE ORDERED BY MD. SEE EMAR FOR DETAILS
[2019-09-21] MEDS: DOPamine 1600MCG/ML D5W 250 ML IV SCH (20:44)
[2019-09-21] MEDS ORDERED: EPOETIN ALFA 10,000 UNIT/1 ML VIAL SC ONE (21:00)
[2019-09-21] MEDS: MYCOPHENOLATE 250 MG CAP PO SCH (21:14)
[2019-09-21] MEDS: HYDROcodone-ACET 10/325MG TAB PO PRN (21:15)
[2019-09-21] MEDS: ALPRAZolam 0.25 MG TAB PO SCH (21:15)
[2019-09-21] MEDS: CARVEDILOL 12.5 MG TAB PO SCH (21:19)
[2019-09-21] MEDS: INSULIN LANTUS (GLARGINE) 1 /0.01ml (100units/ml) SC SCH (21:29)
--- NOTE | 2019-09-21 21:30 | NUR ---
called pharmacy re: epogen order not in fridge per pharmacist, "tech is on their way"
[2019-09-21 22:00] VITALS: BP 151/72
[2019-09-22] VITALS (40 sets, daily range): BP systolic 98–168; BP diastolic 45–86
--- NOTE | 2019-09-22 01:41 | NUR ---
NON COMPLIANCE FOUND PATIENT WITHOUT OXYMIZER ON. PATIENT DESATURATED IN LOW 80'S. PATIENT STATES "SORRY, I JUST NEED TO GO TO THE BATHROOM". ASSISTED PATIENT TO STAND UP WITH URINAL AND PLACED OXYGEN BACK ON. EDUCATED PATIENT TO KEEP OXYGEN ON AT ALL TIMES. OXYMIZER 10L PLACED BACK ON PATIENT. SPO2 UP TO 91% NOW. PATIENT ENCOURAGED TO TAKE DEEP BREATHS
--- NOTE | 2019-09-22 03:34 | NUR ---
FOUND PATIENT SITTING AT EDGE OF BED WITHOUT OXYGEN AGAIN. EXPLAINED TO PATIENT THE IMPORTANCE OF KEEPING OXYGEN ON AT ALL TIMES. PATIENT DESATURATED DOWN TO 80% ON ROOM AIR. PATIENT PLACED IMMEDIATELY BACK ON OXYMIZER AT 10L. PATIENT ENCOURAGED TO TAKE DEEP BREATHS. PATIENT O2 SATS NOW UP TO 92%
--- NOTE | 2019-09-22 05:36 | NUR ---
CALLED AND GAVE REPORT/SBAR TO KARIME CORBIN PENDING TRANSFER TO 219B, AWAITING FOR ROOM TO BE CLEANED
[2019-09-22] MEDS: TACROLIMUS 1 MG CAP PO SCH ×2 (06:13→18:36)
--- NOTE | 2019-09-22 06:18 | NUR ---
PATIENT MOVED TO ROOM 221A WITH RN SHAQUILLE ALL PERSONAL BELONGINGS TAKEN WITH PATIENT. PATIENT PLACED ON TELE #27 LASIX AND DOPAMINE DRIP VERIFIED WITH RN SHAQUILLE PT STABLE AT TIME OF TRANSPORTATION
--- NOTE | 2019-09-22 06:20 | NUR ---
RECEIVED PATIENT FROM KARIEM EDGE, PATIENT RESTING IN BED. NO S/S OF DISTRESS NOTED. DOPA DRIP AND LASIX DRIP RUNNING WELL ORDERED. BED IN LOWEST POSITION WITH SIDE RAILS UP X 2. CALL HUFF WITHIN REACH. ALARM ON. CONTINUE TO MONITOR.
[2019-09-22 06:21] LABS: Basophils # (auto) 0 uL; Basophils % (auto) 0.3 % (0.0-2.0); Eosinophils # (auto) 0 uL; Eosinophils % (auto) 0.5 % (0.0-7.0); Hematocrit 27.7 % (41.0-53.0); Lymphocytes # (auto) 0.7 uL; Lymphocytes % (auto) 10.6 % (10.0-50.0); Mean Corpuscular Hemoglobin 28.8 pg (28.0-32.0); Mean Corpuscular Hgb Conc. 32.4 g/dL (32.0-36.0); Monocytes # (auto) 0.7 uL; Monocytes % (auto) 11.4 % (0.0-12.0); Neutrophils % (auto) 77.2 % (37.0-80.0); Nucleated Red Blood Cells % 0.1 %; Platelet Count (auto) 261 10^3/uL (140-450); Red Blood Cells 3.11 10^6/uL (4.5-5.90); Red Cell Distribution Width 20.5 % (11.8-14.3); White Blood Cell 6.5 10^3/uL (4.4-10.8)
[2019-09-22 06:38] LABS: % Iron Saturation 5.3 % (20-55)
[2019-09-22 06:39] LABS: Calcium 8.3 mg/dL (8.5-10.1); Potassium 4.9 mmol/L (3.5-5.1)
[2019-09-22] MEDS: ACCU-CHEK COMFORT CURVE STRIP VI SCH ×4 (06:40→22:02)
[2019-09-22 06:41] LABS: BUN/Creatinine Ratio 28.5
[2019-09-22] MEDS: InsuLIN REG 1unit/0.01ml Soln (100units/ml) SC SCH ×4 (06:41→22:02)
--- NOTE | 2019-09-22 06:41 | NUR ---
ACCU-CHECK, BS 96. NO COVERAGE. CONTINUE TO MONITOR.
--- NOTE | 2019-09-22 07:06 | NUR ---
JUST RECEIVED CRITICAL LAB RESULT BUN 120. PASS IT TO DAY SHIFT RN. CHRISTINA TO CALL MD FOR THE CRITICAL. CHRISTINA VERBALIZED UNDERSTANDING. CONTINUE CARE.
--- NOTE | 2019-09-22 07:45 | NUR ---
Opening Shift Note Assumed care of patient, awake but drowsy. pt O2 cannula changed by RT to mask due to low O2 sat, pt satting at 93% on mask. Instructed on POC and to call for assist PRN, will continue to monitor for changes Q1hr and PRN.
[2019-09-22] MEDS: IPRATROPIUM BROM 0.5 MG/2.5ML INH SOL NEB SCH ×3 (07:46→18:38)
--- NOTE | 2019-09-22 07:46 | NUR ---
RESP NOTE: WENT TO PTS ROOM TO ADMINISTER BREATHING TX, PT WAS ON A 10 LPM OXYMIZER, PTS SPO2 83%. ADMINISTERED BREATHING TX, POST TX PLACED PT ON 8 LPM SIMPLE MASK PTS SPO2 92-93%, RN MADE AWARE OF CHANGES WILL CONTINUE TO MONITOR PT.
--- NOTE | 2019-09-22 07:58 | NUR ---
CRITICAL VALUE RECEIVED CRITICAL VALUE FROM NIGHT NURSE, BUN 120, DR. RÍOS NOTIFIED, WAITING FOR CALL BACK.
--- NOTE | 2019-09-22 08:28 | NUR ---
CALLED DR. RÍOS ORDERED HOLD LASIX START NS BOLUS 500CC THEN NS 100ML/HR
[2019-09-22] MEDS ORDERED: SODIUM CHLORIDE 0.9% 500 ML IV ONE (08:30)
--- NOTE | 2019-09-22 08:30 | NUR ---
NS BOLUS NOT STARTED PT IS HAVING SOB.
[2019-09-22] MEDS: ONDANSETRON HCL 4 MG/2 ML VIAL IV PRN (09:06)
[2019-09-22] MEDS: SODIUM CHLORIDE 0.9% 1,000 ML IV SCH ×2 (09:09→18:45)
[2019-09-22] MEDS: predniSONE 20 MG TAB PO SCH (10:38)
[2019-09-22] MEDS: ALLOPURINOL 300 MG TAB PO SCH (10:40)
[2019-09-22] MEDS: SERTRALINE HCL 50 MG TAB PO SCH (10:40)
[2019-09-22] MEDS: ISOSORBIDE MONONITRATE ER 60 MG TAB PO SCH (10:40)
[2019-09-22] MEDS: ALPRAZolam 0.25 MG TAB PO SCH ×2 (10:40→21:43)
[2019-09-22] MEDS: PANTOPRAZOLE 40 MG TAB PO SCH (10:41)
[2019-09-22] MEDS: CLOPIDOGREL BISULFATE 75 MG TAB PO SCH (10:42)
[2019-09-22] MEDS: CARVEDILOL 12.5 MG TAB PO SCH ×2 (10:42→22:01)
[2019-09-22] MEDS: MYCOPHENOLATE 250 MG CAP PO SCH ×2 (10:42→21:43)
--- NOTE | 2019-09-22 12:30 | NUR ---
CALLED CODE ASSIST PT ASLEEP ON BED, PT NOT RESPONDING TO VOICE AND PAINFUL STIMULI, BP 112/53BPM, O2 SAT 76%, PT IS BREATHING WITH O2 MASK AT 10LPM, CODE ASSIST TEAM ARRIVED, BLOOD SUGAR 118MG/DL.
[2019-09-22] MEDS ORDERED: ROCURONIUM 10MG/ML 10ML VIAL IV ONE (12:41)
[2019-09-22] MEDS ORDERED: ETOMIDATE (2MG/ML) 20ML VIAL IV ONE (12:41)
[2019-09-22] MEDS ORDERED: SUCCINYLCHOLINE CHLORIDE 20 MG/ML 10ML VIAL IV ONE (12:42)
--- NOTE | 2019-09-22 12:58 | NUR ---
DR. RÍOS MADE AWARE ABOUT PT'S STATUS.
--- NOTE | 2019-09-22 13:00 | NUR ---
CINTHIA OUTSIDE THE ROOM, MADE AWARE OF PT'S CONDITION, DR. ROSA SPOKE TO THE .
--- NOTE | 2019-09-22 13:10 | NUR ---
Respiratory note: PT INTUBATED BY DR ROSA AT 1248 ON SECOND ATTEMPT, ETT PLACEMENT CONFIRMED WITH GOOD COLOR CHANGE ON ETCO2 COLOR DETECTOR. PT BEGAN TO BECOME BRADYCARDIC, BREATH SOUNDS LOST, AND PULSES LOST. STARTED COMPRESSIONS, REMOVED ET TUBE, BEGAN MANUAL VENTILATION WITH BVM AND MASK. PT INTUBATED AGAIN ON FIRST ATTEMPT BY DR ROSA AT 1257. PT WITH ETT 8.0 AT 26 CM UPPER LIP, SECURED WITH HOLISTER. ROSC ACHIEVED. PLACED PT ON VENT V11 PLUGGED INTO RED OUTLET AND PROPER O2 SOURCE. PLACED ON ORDERED SETTINGS: AC, RR 20, VT 600, PEEP +5, 100%. ABG TO FOLLOW IN ONE HOUR. ETT PLACEMENT CONFIRMED BY BILATERAL CHEST RISE AND LUNG SOUNDS, GOOD COLOR CHANGE ON ETCO2 DETECTOR, ABSENCE OF GASTRIC SOUNDS, AND CXR SHOWS ETT PLACEMENT 5CM ABOVE THE SHER. SPUTUM SAMPLE OBTAINED, SENT TO LAB. PT SEDATED AND UNRESPONSIVE AT THIS TIME. SKIN COOL AND DRY TO TOUCH. KARIME DUMONT AT BEDSIDE. WILL CONTINUE TO MONITOR.
[2019-09-22] MEDS ORDERED: PROPOFOL 100 ML IV ONE ×3 (13:15→18:34)
--- NOTE | 2019-09-22 13:30 | NUR ---
PT ORALLY INTUBATED BY DR ROSA DURING CODE BLUE. CXR DONE AND CONFIRMED OF PLACEMENT. NGT INSERTED AT THE LEFT NARE AND CONNECTED TO LIS. COTO CATH ALSO INSERTED DRAINING CLEAR YELLOW URINE. WILL CONT TO MONITOR PT VITAL SIGNS.
--- NOTE | 2019-09-22 13:30 | NUR ---
REPORT GIVEN TO KARIME DUMONT.
--- NOTE | 2019-09-22 13:40 | NUR ---
SEDATION INITIATED. VITAL SIGNS BP 138/76 HR 82 SPO2 100%.
--- NOTE | 2019-09-22 14:25 | NUR ---
SEEN BY DR RÍOS. AT THE BEDSIDE.
--- NOTE | 2019-09-22 15:10 | NUR ---
Admit to ICU from tele on vent: NOTE: Patient respiratory failure, C02 in the 160's- Dr. Rolon called, patient intubated and during intubation patient went PEA -CPR initiated per report. KVNG SOTO admitted to ICU via gurney on laboratory monitor, intubated and being bagged by Respiratory Therapist. Patient transfered to bed, connected to mechanical ventilator by therapist, BVM at bedside. Patient connected to ICU monitoring, weighed by bedscale, unable to orient to Leah webster RN, unit, ventilator and sedation on. NOTE: report received from Anita-charge nurse pending report from Alejandra Pinedo RN in tele.
--- NOTE | 2019-09-22 15:40 | NUR ---
Dr. Dick at bedside: Urine sodium, urine creatinine, urine protein and Urinalysis ordered.
--- NOTE | 2019-09-22 16:03 | NUR ---
Hold Elma paz communication order placed by KARIME Roberts in tele given by.
--- NOTE | 2019-09-22 16:05 | NUR ---
Spoke to Dr. Kim: Hold Lasix drip (BUN increased) - Okay for CT head -for unequal pupils, and continue dopamine for renal profusion.
--- NOTE | 2019-09-22 17:05 | NUR ---
Patient transported to radiology for CT head.
--- NOTE | 2019-09-22 17:20 | NUR ---
RT Transport Note: Patient transported to Radiology for CT head with RN Leah. Patient transported on hall monitor and transport vent connected to O2 tank, with ambu bag and mask available. Pt returned to room and placed back on vent on previously ordered settings. Report given to noc shift RT.
--- NOTE | 2019-09-22 17:20 | NUR ---
Patient back from radiology- stable at this time.
--- NOTE | 2019-09-22 17:30 | NUR ---
Urine sent to lab.
--- NOTE | 2019-09-22 17:45 | NUR ---
Dr. Perez at bedside: Peep increased to 8, ABG and CXR in the AM ordered.
[2019-09-22] MEDS: BUMETANIDE INJECTION 25 MG in GIVE UN-DILUTED 0 ML IV SCH ×2 (17:46→18:22)
[2019-09-22] MEDS: DOPamine 1600MCG/ML D5W 250 ML IV SCH (18:14)
[2019-09-22 18:18] LABS: Protein, Urine 58.9 mg/dL (0.0-11.9)
[2019-09-22] MEDS ORDERED: DexMEDEtomidine 400 MCG in D5W 5% 96 ML IV SCH (18:25)
[2019-09-22] MEDS: PROPOFOL 100 ML IV SCH ×2 (18:34→22:03)
[2019-09-22] MEDS: fentaNYL Drip 2500mCg/250mlNS 250 ML IV SCH (18:34)
--- NOTE | 2019-09-22 19:30 | NUR ---
PREVIOUS RIGHT FOREARM PIV WAS RUNNING DOPAMINE GTT, UNSURE ABOUT EXTRAVASATION, NO ERYTHEMA, WARMTH, OR EDEMA, WILL CONT TO ASSESS
--- NOTE | 2019-09-22 19:30 | NUR ---
D/C'D PIV TO RIGHT FOREARM AND RIGHT AC
--- NOTE | 2019-09-22 19:41 | NUR ---
Endorsed care to KARIME Sousa.
[2019-09-22] MEDS: MIDAZOLAM DRIP 50 mg/50mL 50 ML IV SCH (19:54)
[2019-09-22] MEDS ORDERED: DOPamine 1600mCg/ml 400MG/250ml NSorD5 KIT/BAG IV ONE (20:49)
[2019-09-22] MEDS ORDERED: SODIUM BICARBONATE 8.4% INJ 50ML SYRINGE IV ONE (20:49)
[2019-09-22] MEDS ORDERED: ATROPINE SULF 1 MG/10ml SYR IV ONE (20:49)
--- NOTE | 2019-09-22 21:00 | NUR ---
UNABLE TO COMPLETE SEDATION VACATION AT THIS TIME - NOTED WITH MYOCLONIC TWITCHING AND JERKING Addendum: 09/22/19 at 2312 by Merry Bernal RN RN Amended: Links added.
--- NOTE | 2019-09-22 21:41 | NUR ---
SPOKE WITH KHADIJAH, PHARMACIST REGARDING CELLCEPT: PER PHARMACY, THEY DO NOT HAVE LIQUID CELLCEPT IN STOCK, AND IT IS TOO LATE TO ORDER FOR TOMORROW. PER PHARMACY, DO NOT CRUSH OR OPEN CELLCEPT CAPSULE. PER PHARMACY, THEY WILL ATTEMPT TO CALL [facility] TO SEE IF THEY HAVE STOCK.
[2019-09-22] MEDS: INSULIN LANTUS (GLARGINE) 1 /0.01ml (100units/ml) SC SCH (22:00)
--- NOTE | 2019-09-22 22:15 | NUR ---
PER PHARMACY, THEY WILL BORROW CELLCEPT LIQUID FROM [facility]
--- NOTE | 2019-09-22 22:15 | NUR ---
RIGHT FOREARM NOTED WITH ERYTHEMA - PLACED NITRO PASTE VIA EXTRAVASATION PROTOCOL, AND WARMTH, WILL CONT CARE
[2019-09-22] MEDS ORDERED: NITROGLYCERIN 2% OINT 1GM PKG TD ONE (22:30)
[2019-09-22] MEDS: MYCOPHENOLATE 200 MG/ML NG SCH (23:30)
[2019-09-23] VITALS (100 sets, daily range): BP systolic 83–152; BP diastolic 47–77
[2019-09-23] MEDS: IPRATROPIUM BROM 0.5 MG/2.5ML INH SOL NEB SCH ×4 (00:07→18:19)
--- NOTE | 2019-09-23 00:20 | NUR ---
PIV ASSESSMENT: 22 G PIV TO LEFT AC, CDI, AND PATENT WITH BLOOD RETURN, NO ERYTHEMA, INFILTRATION, OR PHLEBITIS,. 20 G PIV TO LEFT FOREARM, CDI AND PATENT WITH BLOOD RETURN, NO ERYTHEMA, INFILTRATION OR PHLEBITIS. 20 G PIV TO RIGHT WRIST, CDI AND PATENT WITH BLOOD RETURN, NO ERYTHEMA, INFILTRATION OR PHLEBITIS
[2019-09-23] MEDS: PROPOFOL 100 ML IV SCH ×3 (01:53→08:03)
[2019-09-23 01:55] LABS: Urine Bacteria FEW /hpf (None Seen); Urine Blood 2+ /uL (Negative); Urine Mucus FEW (None Seen); Urine Specific Gravity 1.007 (1.001-1.035); Urine WBC <1 /hpf (0 - 3)
[2019-09-23 03:35] LABS: Basophils # (auto) 0 uL; Basophils % (auto) 0.2 % (0.0-2.0); Eosinophils # (auto) 0 uL; Hematocrit 25.7 % (41.0-53.0); Hemoglobin 8.5 g/dL (13.5-17.5); Lymphocytes # (auto) 0.6 uL; Lymphocytes % (auto) 10.4 % (10.0-50.0); Mean Corpuscular Hemoglobin 28.5 pg (28.0-32.0); Mean Corpuscular Volume 86.4 fL (80.0-100.0); Monocytes # (auto) 0.4 uL; Monocytes % (auto) 7.9 % (0.0-12.0); Neutrophils # (auto) 4.5 uL; Neutrophils % (auto) 81.5 % (37.0-80.0); Nucleated Red Blood Cells % 0.1 %; Platelet Count (auto) 262 10^3/uL (140-450); Red Blood Cells 2.98 10^6/uL (4.5-5.90); White Blood Cell 5.5 10^3/uL (4.4-10.8)
[2019-09-23 03:38] LABS: Red Cell Distribution Width 20.7 % (11.8-14.3)
[2019-09-23 03:55] LABS: INR 1.04 (0.9-1.15)
[2019-09-23 04:00] LABS: Albumin 2.9 g/dL (3.4-5.0); BUN/Creatinine Ratio 31.2; Potassium 4.2 mmol/L (3.5-5.1)
[2019-09-23 04:03] LABS: Bilirubin, Total 0.4 mg/dL (0.2-1.0); Total Protein 5.8 g/dL (6.4-8.2)
--- NOTE | 2019-09-23 04:07 | NUR ---
BED BATH WITH CHG WIPES, WILBERTO CARE, COTO CARE, ORAL CARE, AND PARTIAL LINEN CHANGE COMPLETED
[2019-09-23] MEDS: SODIUM CHLORIDE 0.9% 1,000 ML IV SCH ×2 (04:30→08:02)
[2019-09-23] MEDS: MIDAZOLAM DRIP 50 mg/50mL 50 ML IV SCH ×2 (05:21→12:48)
--- NOTE | 2019-09-23 06:22 | NUR ---
CLOSING NOTE: REMAINS INTUBATED AND SEDATED. NOTED WITH MYOCLONIC JERKING/TWITCHING WITH STIMULATION BUT NOT SEVERE A PREVIOUSLY. VSS OTHERWISE. WILL ENDORSE CARE TO DAY SHIFT.
[2019-09-23] MEDS: TACROLIMUS 1 MG CAP PO SCH ×2 (06:33→18:10)
[2019-09-23] MEDS: ACCU-CHEK COMFORT CURVE STRIP VI SCH ×4 (06:36→22:16)
[2019-09-23] MEDS: InsuLIN REG 1unit/0.01ml Soln (100units/ml) SC SCH ×4 (06:36→22:15)
--- NOTE | 2019-09-23 07:00 | NUR ---
Report received from KARIME Sousa.
--- NOTE | 2019-09-23 07:17 | NUR ---
CARE AND REPORT ENDORSED TO KARIME ZUNIGA
[2019-09-23] MEDS: DOPamine 1600MCG/ML D5W 250 ML IV SCH (08:02)
--- NOTE | 2019-09-23 09:50 | NUR ---
Respiratory note: END-TIDAL CO2 DETECTOR IN PLACE PER .
[2019-09-23] MEDS: PANTOPRAZOLE 40 MG TAB PO SCH (10:00)
[2019-09-23] MEDS ORDERED: ALLOPURINOL 100 MG TAB ONE (10:20)
--- NOTE | 2019-09-23 10:20 | NUR ---
Dr. Young at bedside- patient responding appropriately to stimuli.
[2019-09-23] MEDS: predniSONE 20 MG TAB PO SCH (10:32)
[2019-09-23] MEDS: MYCOPHENOLATE 200 MG/ML NG SCH ×2 (10:32→22:16)
[2019-09-23] MEDS: CARVEDILOL 12.5 MG TAB PO SCH ×2 (10:33→22:16)
[2019-09-23] MEDS: ISOSORBIDE MONONITRATE ER 60 MG TAB PO SCH (10:33)
[2019-09-23] MEDS: CLOPIDOGREL BISULFATE 75 MG TAB PO SCH (10:34)
[2019-09-23] MEDS: SERTRALINE HCL 50 MG TAB PO SCH (10:34)
[2019-09-23] MEDS: ALLOPURINOL 300 MG TAB PO SCH (10:35)
[2019-09-23] MEDS: ALPRAZolam 0.25 MG TAB PO SCH ×2 (10:35→22:00)
--- NOTE | 2019-09-23 11:02 | NUR ---
Dr. Perez at bedside- no orders to CPAP, ask Dr. Kim when ok to CPAP.
[2019-09-23] MEDS: BUMETANIDE INJECTION 25 MG in GIVE UN-DILUTED 0 ML IV SCH (11:47)
--- NOTE | 2019-09-23 12:16 | NUR ---
Respiratory note: RR DECREASED TO 16 AND FIO2 TO 45% PER DR. PARRA ORDERS.
--- NOTE | 2019-09-23 12:55 | NUR ---
WOUND CARE NOTE: IN TO SEE PATIENT AT THIS TIME PER WOUND CARE CONSULT REQUEST. PATIENT ADMITTED TO [facility] WITH DIAGNOSIS OF ACUTE RENAL FAILURE. PATIENT HAS CURRENT JOSE SCORE OF 11. HE IS INTUBATED, SEDATED. PATIENT HAS INTACT, SUTURED WOUNDS TO LEFT FACE, LEFT THUMB, RIGHT FOREARM. WOUNDS ARE WELL APPROXIMATED, LEFT OPEN TO AIR. PATIENT HAS NO OTHER SKIN INTEGRITY ISSUES AT THIS TIME. SKIN/WOUND CARE PLAN IMPLEMENTED, PATIENT WOULD BENEFIT FROM: FREQUENT TURN SCHEDULE Q 2 HOURS,PRN CONDITION PERMITS, WITH PRESSURE REDISTRIBUTION USING PILLOWS/WEDGES, BID/PRN APPLICATION WITH MOISTURE BARRIER CREAM TO SACRUM, COVERING UPPER MEDIAL SACRUM WITH OPTIFOAM GENTLE SACRAL DRESSING, DIETARY CONSULT, CONTINUED MONITORING BY WOUND CARE TEAM.
--- NOTE | 2019-09-23 13:13 | NUR ---
Okay to remove sutures to left face and right arm per Dr. Kim.
--- NOTE | 2019-09-23 13:15 | NUR ---
Dr. Jensen at bedside- no new orders, patient significantly urinating -so far 2,000 plus on day shift. Continue to monitor daily renal function.
--- NOTE | 2019-09-23 13:47 | NUR ---
Sutures removed to face and right arm, cleansed with NS and covered with Optifoam dressing. at bedside.
--- NOTE | 2019-09-23 14:28 | NUR ---
Dr. Kim at bedside; labs.
--- NOTE | 2019-09-23 15:12 | NUR ---
Nutrition Assessment/consult Notes please see attached link for complete assessment Est. Needs ABW [id number] kcal (23-25 kcal/kgBW), 72-91 gms pro (0.8-1.0 gms/kgBW). Will continue to monitor pertinent labs and reassess nutrient need prn Addendum: 09/23/19 at [address] Amended: Links added.
[2019-09-23] MEDS: fentaNYL Drip 2500mCg/250mlNS 250 ML IV SCH ×2 (18:11→21:15)
--- NOTE | 2019-09-23 19:01 | NUR ---
Endorsed care to KARIME Sousa.
--- NOTE | 2019-09-23 21:00 | NUR ---
UNABLE TO COMPLETE SEDATION VACATION: PATIENT OPENING EYES AND GRIMACING. WILL REASSESS NECESSITY OF SEDATION Addendum: 09/24/19 at 0158 by Merry Bernal RN RN Amended: Links added.
[2019-09-23] MEDS: INSULIN LANTUS (GLARGINE) 1 /0.01ml (100units/ml) SC SCH (22:00)
[2019-09-24] VITALS (85 sets, daily range): BP systolic 99–152; BP diastolic 58–80
[2019-09-24] MEDS: IPRATROPIUM BROM 0.5 MG/2.5ML INH SOL NEB SCH ×4 (00:28→17:59)
[2019-09-24] MEDS: SODIUM CHLORIDE 0.9% 1,000 ML IV SCH ×2 (00:30→11:22)
[2019-09-24] MEDS: MIDAZOLAM DRIP 50 mg/50mL 50 ML IV SCH (02:34)
--- NOTE | 2019-09-24 04:00 | NUR ---
PARTIAL BED BATH, AND PARTIAL LINEN CHANGE COMPLETED
[2019-09-24 04:26] LABS: Basophils # (auto) 0 uL; Basophils % (auto) 0.6 % (0.0-2.0); Eosinophils # (auto) 0 uL; Hematocrit 30.1 % (41.0-53.0); Hemoglobin 9.8 g/dL (13.5-17.5); Lymphocytes # (auto) 0.9 uL; Lymphocytes % (auto) 15.3 % (10.0-50.0); Mean Corpuscular Hemoglobin 28.2 pg (28.0-32.0); Mean Corpuscular Hgb Conc. 32.5 g/dL (32.0-36.0); Mean Corpuscular Volume 86.9 fL (80.0-100.0); Monocytes # (auto) 0.5 uL; Monocytes % (auto) 8.6 % (0.0-12.0); Neutrophils # (auto) 4.3 uL; Neutrophils % (auto) 75.5 % (37.0-80.0); Nucleated Red Blood Cells % 0.2 %; Platelet Count (auto) 264 10^3/uL (140-450); Red Blood Cells 3.47 10^6/uL (4.5-5.90); White Blood Cell 5.7 10^3/uL (4.4-10.8)
[2019-09-24 04:42] LABS: Red Cell Distribution Width 21.2 % (11.8-14.3)
[2019-09-24 04:45] LABS: Calcium 8.1 mg/dL (8.5-10.1)
[2019-09-24 04:48] LABS: BUN/Creatinine Ratio 34.4; Bilirubin, Total 0.6 mg/dL (0.2-1.0); Total Protein 6.2 g/dL (6.4-8.2)
[2019-09-24] MEDS: InsuLIN REG 1unit/0.01ml Soln (100units/ml) SC SCH ×4 (06:47→21:46)
[2019-09-24] MEDS: TACROLIMUS 1 MG CAP PO SCH ×2 (06:47→17:31)
[2019-09-24] MEDS: ACCU-CHEK COMFORT CURVE STRIP VI SCH ×4 (06:48→21:46)
--- NOTE | 2019-09-24 07:15 | NUR ---
Report received from KARIME Sousa.
--- NOTE | 2019-09-24 07:29 | NUR ---
REPORT AND CARE ENDORSED TO KARIME ZUNIGA
--- NOTE | 2019-09-24 08:23 | NUR ---
Dr. Young at bedside. Patient responding to stimuli.
--- NOTE | 2019-09-24 10:10 | NUR ---
Patient off sedation for CPAP.
--- NOTE | 2019-09-24 10:10 | NUR ---
Respiratory note: KARIME ZUNIGA INFORMED ME THAT SHE WAS STOPPING SEDATION TO PREPARE PT FOR CPAP TRIAL.
--- NOTE | 2019-09-24 10:30 | NUR ---
Respiratory note: CPAP TRIAL INITIATED WITH PS 8, AND PEEP OF +[address] PARRA ORDER. PT TOLERATING TRIAL WELL. SPO2 98% ON 30%FIO2, HR 83, RR 18, BS CLEAR T/O. WILL CONTINUE TO MONITOR PT.
[2019-09-24] MEDS: PANTOPRAZOLE 40 MG/10 ML VIAL INJ IV SCH (11:20)
[2019-09-24] MEDS: predniSONE 20 MG TAB PO SCH (11:21)
[2019-09-24] MEDS: MYCOPHENOLATE 200 MG/ML NG SCH ×2 (11:21→21:44)
[2019-09-24] MEDS: ISOSORBIDE MONONITRATE ER 60 MG TAB PO SCH (11:21)
[2019-09-24] MEDS: ALPRAZolam 0.25 MG TAB PO SCH ×2 (11:22→21:45)
[2019-09-24] MEDS: ALLOPURINOL 300 MG TAB PO SCH (11:22)
[2019-09-24] MEDS: SERTRALINE HCL 50 MG TAB PO SCH (11:22)
[2019-09-24] MEDS: CLOPIDOGREL BISULFATE 75 MG TAB PO SCH (11:22)
[2019-09-24] MEDS: DOPamine 1600MCG/ML D5W 250 ML IV SCH (11:23)
[2019-09-24] MEDS: BUMETANIDE INJECTION 25 MG in GIVE UN-DILUTED 0 ML IV SCH (11:24)
--- NOTE | 2019-09-24 11:30 | NUR ---
Went over plan of care with , aware of extubating patient today.
--- NOTE | 2019-09-24 12:12 | NUR ---
Respiratory note: CALLED DR PARRA WITH WEANING PARAMETERS, AND ABG RESULTS POST CPAP TRIAL. RSBI 67, NIF-22.3, VC 1214, LEAK 571. DR PARRA GAVE ORDER TO EXTUBATE BASED ON THESE RESULTS.
[2019-09-24] MEDS ORDERED: EPINEPHrine HCL 0.5 ML NEB NEB ONE ×2 (12:15)
--- NOTE | 2019-09-24 12:35 | NUR ---
Patient extubated By RT Nolan, placed on cool aersol mask and tolerating well.
[2019-09-24] MEDS: CARVEDILOL 12.5 MG TAB PO SCH ×2 (12:44→21:44)
--- NOTE | 2019-09-24 12:57 | NUR ---
Respiratory note: PT EXTUBATED PER DR PARRA ORDER, AND PLACED ON 30% FIO2 COOL AEROSOL. PT TOLERATING EXTUBATION WELL. SPO2 92%, HR 90, RR 18, BS CLEAR/DIMINISHED T/O. WILL CONTINUE TO MONITOR PT. RN AT BEDSIDE. Addendum: 09/24/19 at 1306 by MILTON COTTRELL RT RT PT EXTUBATED AT 12:35.
--- NOTE | 2019-09-24 14:33 | NUR ---
On nasal canula 2 liters - in the mouth due to mouth breathing.
--- NOTE | 2019-09-24 15:00 | NUR ---
Dr. Jensen at bedside: Discontinued bumex drip and ordered bumex IV.
[2019-09-24] MEDS: HYDROcodone-ACET 10/325MG TAB PO PRN ×2 (17:16→23:01)
[2019-09-24] MEDS: PROPOFOL 100 ML IV SCH (18:17)
--- NOTE | 2019-09-24 19:13 | NUR ---
Report given and endorsed care to KARIME Romero.
--- NOTE | 2019-09-24 19:30 | NUR ---
Opening Shift Note Received pt laying in bed, easily arousable to voice. Pt is oriented to self and place, does not know the situation or time. Pt requests water and states he is sore. Will medicate for pain prn. Pt on 2 lpm n.c. saturations 95%. Full assessment done see interventions. Bed locked in lowest position with side rails up x2. Call light within reach pt verbalized understanding to call for assist. Pt in full view of RN.
--- NOTE | 2019-09-24 20:00 | NUR ---
s/p extubation Checked pt's ability to swallow with ice chips and pt swallows with no s/s of difficulty noted besides complaints of sore throat. Water given per pt request.
[2019-09-24] MEDS: BUMETANIDE 2.5mg/10ml (0.25 mg/ml) INJ IV SCH (21:44)
[2019-09-24] MEDS: INSULIN LANTUS (GLARGINE) 1 /0.01ml (100units/ml) SC SCH (21:46)
[2019-09-24] MEDS ORDERED: BUMETANIDE 2.5mg/10ml (0.25 mg/ml) INJ IV ONE (22:00)
[2019-09-25] VITALS (47 sets, daily range): BP systolic 97–160; BP diastolic 55–83
[2019-09-25] MEDS: IPRATROPIUM BROM 0.5 MG/2.5ML INH SOL NEB SCH ×4 (00:26→19:04)
[2019-09-25] MEDS: ONDANSETRON HCL 4 MG/2 ML VIAL IV PRN (03:00)
[2019-09-25] MEDS: HYDROcodone-ACET 10/325MG TAB PO PRN ×3 (03:30→20:13)
--- NOTE | 2019-09-25 03:30 | NUR ---
Emesis Pt had an episode of vomiting moderate amount of green fluid. zofran given for n/v. will continue to monitor and keep pt npo for now. Aspiration precautions in place.
--- NOTE | 2019-09-25 04:50 | NUR ---
Cares Full linen change performed at this time. Pt still weak and needs full assistance with turning and ADL'S. Pt complaining of generalized pain. [place] given per PRN order. Will continue to monitor.
[2019-09-25 05:13] LABS: Basophils # (auto) 0.1 uL; Eosinophils # (auto) 0.1 uL; Eosinophils % (auto) 0.8 % (0.0-7.0); Hematocrit 34.1 % (41.0-53.0); Hemoglobin 10.9 g/dL (13.5-17.5); Lymphocytes # (auto) 0.7 uL; Lymphocytes % (auto) 9.8 % (10.0-50.0); Mean Corpuscular Hemoglobin 27.6 pg (28.0-32.0); Mean Corpuscular Volume 86.4 fL (80.0-100.0); Monocytes # (auto) 0.7 uL; Monocytes % (auto) 10.7 % (0.0-12.0); Neutrophils # (auto) 5.2 uL; Neutrophils % (auto) 77.7 % (37.0-80.0); Nucleated Red Blood Cells % 0.1 %; Platelet Count (auto) 295 10^3/uL (140-450); Red Blood Cells 3.95 10^6/uL (4.5-5.90); White Blood Cell 6.7 10^3/uL (4.4-10.8)
[2019-09-25 05:18] LABS: Red Cell Distribution Width 20.5 % (11.8-14.3)
[2019-09-25 05:31] LABS: Albumin 3.2 g/dL (3.4-5.0); BUN/Creatinine Ratio 32.9; Bilirubin, Total 0.5 mg/dL (0.2-1.0); Calcium 8.6 mg/dL (8.5-10.1); Total Protein 6.9 g/dL (6.4-8.2)
[2019-09-25] MEDS: InsuLIN REG 1unit/0.01ml Soln (100units/ml) SC SCH ×4 (06:11→21:03)
[2019-09-25] MEDS: ACCU-CHEK COMFORT CURVE STRIP VI SCH ×4 (06:11→21:03)
[2019-09-25] MEDS: TACROLIMUS 1 MG CAP PO SCH ×2 (06:11→18:22)
[2019-09-25] MEDS: SODIUM CHLORIDE 0.9% 1,000 ML IV SCH ×3 (06:30→16:30)
--- NOTE | 2019-09-25 09:30 | NUR ---
EMESIS PATIENT VOMITING MODERATE GREEN EMESIS. COMFORT MEASURES PROVIDED, MEDICATION TOO SOON, WILL NOTIFY MD WHEN ROUNDING. BREAKFAST PROVIDED, PATIENT AGREED TO BREAKFAST. ASPIRATION AND FALL PRECAUTIONS IN PLACE.
[2019-09-25] MEDS: CARVEDILOL 12.5 MG TAB PO SCH ×2 (10:22→21:02)
[2019-09-25] MEDS: ISOSORBIDE MONONITRATE ER 60 MG TAB PO SCH (10:26)
[2019-09-25] MEDS: SERTRALINE HCL 50 MG TAB PO SCH (10:26)
[2019-09-25] MEDS: predniSONE 20 MG TAB PO SCH (10:26)
[2019-09-25] MEDS: CLOPIDOGREL BISULFATE 75 MG TAB PO SCH (10:26)
[2019-09-25] MEDS: ALPRAZolam 0.25 MG TAB PO SCH ×2 (10:26→21:11)
[2019-09-25] MEDS: BUMETANIDE 2.5mg/10ml (0.25 mg/ml) INJ IV SCH (10:27)
[2019-09-25] MEDS: PANTOPRAZOLE 40 MG/10 ML VIAL INJ IV SCH (10:27)
[2019-09-25] MEDS: ALLOPURINOL 300 MG TAB PO SCH (10:28)
--- NOTE | 2019-09-25 12:21 | NUR ---
DR RÍOS AT BEDSIDE DR RÍOS UPDATED ON PATIENT'S STATUS, EMESIS AND DRIPS. DR RÍOS DISCUSSED PLAN OF CARE WITH PATIENT AND SPOUSE, BOTH VERBALIZED UNDERSTANDING. ORDERS RECEIVED AND WILL BE CARRIED OUT. DR RÍOS ORDERED DOPAMINE TO CONTINUE AT FIXED RATE AND TO NOTIFY STAFF TO KEEP PATIENT AT 3 LITERS DOES NOT WANT STAFF TO TITRATE.
[2019-09-25] MEDS: METOCLOPRAMIDE HCL 5MG/ml INJ 2ml VIAL IV SCH ×2 (13:24→20:41)
--- NOTE | 2019-09-25 14:18 | NUR ---
Nutrition Follow-up Notes Wt.: 112.1 kg Pt`s successfully extubated was sleeping with no family by bedside. per pt records pt s/p PTCA. pt is currently on CCHO 60 gm cardiac diet fine chop with inadequate PO of < 50% x 4 per RN doc as pt is refusing to eat Est. Needs ABW [id number] kcal (23-25 kcal/kgBW), 72-91 gms pro (0.8-1.0 gms/kgBW). Will continue to monitor pertinent labs and reassess nutrient need prn Labs: BUN 117 H, CREAT 3.56 H, GLU 175 H, ALB 3.2 L. Skin: Victorino scale 11, high risk, pt`s s.p sutures removed per RN doc GI: Pt's has no BM reported per layout mechanic. PES: Altered nutrition related lab values r/t current/chronic medical condition aeb elev RFT mod hypoalb, hyperglycemia, hypocalcemia Resolved: Impaired swallowing r/t current medical condition aeb pt`s intubated sedated with order of NPO Decreased nutrient needs r/t adiposity aeb pt`s high BMI of 36.5 kgm2 Will continue to monitor PO intake, skin status, pertinent labs and weight trend. F/u in 3 to 5 days. Rec.: 1.) refer to [employer] dietitian on DC. 2) consider Glucerna 1 carton bid. 3) ) continue current plan of care
[2019-09-25] MEDS ORDERED: MYCOPHENOLATE 250 MG CAP PO ONE (14:45)
--- NOTE | 2019-09-25 15:21 | NUR ---
MED CLARIFICATION CONTACT DR RÍOS REGARDING PHARMACY CLARIFICATION FOR COREG DOSE. THIS NURSE ALSO REQUESTING CLARIFICATION FOR NS AT 100/MLS/HR AND BUMEX BID. DR RÍOS ORDERED BUMEX TO BE HELD AND CONTINUE COREG AT 75 MGS PO BID PREVIOUSLY ORDERED. PHARMACY WILL BE NOTIFIED.
--- NOTE | 2019-09-25 15:45 | NUR ---
PULMONOLOGY AT BEDSIDE DR PARRA UPDATED ON PATIENT'S STATUS. ORDERS FOR I.S. PROVIDED AND CARRIED OUT.
--- NOTE | 2019-09-25 16:00 | NUR ---
COMFORT/I.S. PARTIAL BEDDING CHANGED, CLEANSED PATIENT'S BOTTOM WITH SOAP AND WATER, OPTIFOAM APPLIED - THIS NURSE NOTED BLANCHABLE REDNESS TO BUTTOCK AREA WITH INTACT SCRATCH TO LEFT INNER BUTTOCK. DISCUSSED IMPORTANCE OF TURNING WITH PATIENT AND SPOUSE TO MAINTAIN SKIN INTEGRITY - BOTH VERBALIZED UNDERSTANDING. PATIENT TURNED FOR COMFORT, TOLERATED WELL. I.S. PATIENT EDUCATED ON NEED AND USE OF INCENTIVE SPIROMETER, PATIENT'S SPOUSE STATED THAT THEY HAVE ONE AT HOME AND PATIENT HAS USED ONE BEFORE. THIS NURSE DEMONSTRATED USE AND PATIENT PROVIDED A RETURN DEMONSTRATION MEASURING 1000 MLS. PATIENT ALSO EDUCATED ON CHEST PROTECTION WHEN COUGHING HE REPORTS PAIN TO CHEST AREA WHEN COUGHING WELL GENERALIZED PAIN WHEN PROVIDING CARE AND/OR TURNING. PATIENT PREVIOUSLY MEDICATED FOR PAIN ORDERED BY MD. CALL LIGHT, WATER AND ALL PERSONAL BELONGINGS WITHIN REACH. FALL AND SAFETY PRECAUTIONS IN PLACE, SPOUSE CINTHIA AT BEDSIDE.
[2019-09-25] MEDS: DOPamine 1600MCG/ML D5W 250 ML IV SCH ×2 (16:24→19:15)
--- NOTE | 2019-09-25 16:35 | NUR ---
REPORT CALLED IN TO ALEIDA LACEY R.N. PATIENT AND SPOUSE NOTIFIED OF TRANSFER TO ROOM 231, AWAITING BED AND TELE BOX.
--- NOTE | 2019-09-25 17:05 | NUR ---
Reports received earlier from [facility], patient transferred to room via bed. Patient is alert and oriented, not in respiratory distress. Patient is hard of hearing and complains of generalized body pain particularly the anterior chest secondary to chest compressions from CP arrest 3 days ago. Oriented to floor policy. Hooked to O2 at 3lpm nasal cannula with strict instructions of no titration. Patient came with telemetry box #5 reading [id number]. Bed alarm on and side rails up x2. Call light within reach. Continue to monitor.
--- NOTE | 2019-09-25 17:09 | NUR ---
ICU patient trans to floor [facility] transferred to central room 231 via gurney on desk monitor and portable 02. All patient medications and personal belongings transferred with patient to receiving floor. Patient alert and oriented x3 with episodes of forgetfulness, no distress noted, respirations even and unlabored. Patient accompanied by spouse Brenda. Patient care transferred to KARIME Grissom.
--- NOTE | 2019-09-25 18:14 | NUR ---
Noted with moist cough but clear breath sounds upon auscultation.
[2019-09-25] MEDS ORDERED: DOPamine 1600MCG/ML D5W 250 ML IV SCH (18:30)
--- NOTE | 2019-09-25 19:45 | NUR ---
Opening Shift Note Assumed care of patient, awake and alert, oriented x 4, follows directions, clear speech. On oxygen at 3L via NC with even and unlabored respirations. No S/S of distress or SOB.Patient was able to return demonstration with proper use of IS, 500mL inspire volume, encourage patient to continue with use, patient verbalized understanding. Patient denies nausea at this time. patient reports consuming 100% of dinner and tolerated well. Patient does not remember LBM. [place]lin intact and draining to gravriyt with clear yellow urine, no kinks. IV to right wrist 20g intact and patent. IV to left FA 20g intact and patent. Bed low locked position with side rails up x 2 and call light within reach, bed alarm on. Instructed on POC and to call for assist PRN, will continue to monitor for changes Q1hr and PRN.
[2019-09-25] MEDS: INSULIN LANTUS (GLARGINE) 1 /0.01ml (100units/ml) SC SCH (21:03)
[2019-09-25] MEDS: MYCOPHENOLATE 250 MG CAP PO SCH (22:00)
[2019-09-26] MEDS: IPRATROPIUM BROM 0.5 MG/2.5ML INH SOL NEB SCH ×4 (00:28→19:02)
[2019-09-26] MEDS: SODIUM CHLORIDE 0.9% 1,000 ML IV SCH ×3 (02:30→21:45)
[2019-09-26 04:43] VITALS: BP 149/67
[2019-09-26] MEDS: TACROLIMUS 1 MG CAP PO SCH ×3 (05:58→19:00)
[2019-09-26] MEDS: METOCLOPRAMIDE HCL 5MG/ml INJ 2ml VIAL IV SCH ×3 (05:58→21:44)
[2019-09-26 06:00] VITALS: BP 147/77
[2019-09-26] MEDS: ACCU-CHEK COMFORT CURVE STRIP VI SCH ×4 (06:09→21:45)
[2019-09-26] MEDS: InsuLIN REG 1unit/0.01ml Soln (100units/ml) SC SCH ×4 (06:10→21:45)
[2019-09-26] MEDS: DOPamine 1600MCG/ML D5W 250 ML IV SCH (06:11)
[2019-09-26] MEDS: HYDROcodone-ACET 10/325MG TAB PO PRN ×2 (06:32→17:55)
--- NOTE | 2019-09-26 07:02 | NUR ---
Closing Note patient awake resting in bed with oxygen on at 3L via NC with even and unlabored respirations, no s/s of distress. Bed low locked position with side rails up x 2 and call light within reach, bed alarm on. Endorsed care to day shift RN.
--- NOTE | 2019-09-26 08:00 | NUR ---
Opening Shift Note Assumed care of patient, awake and alert. No S/S of distress/SOB, with complaints of generalized pain 6/10. Able to use incentive spirometer and raised from 500ml to 1250ml, encouraged to use it at least 10 times or as tolerated. Instructed on POC and to call for assist PRN, will continue to monitor for changes Q1hr and PRN.
[2019-09-26] MEDS: ALPRAZolam 0.25 MG TAB PO SCH ×2 (09:29→21:44)
[2019-09-26] MEDS: PANTOPRAZOLE 40 MG/10 ML VIAL INJ IV SCH (09:29)
[2019-09-26] MEDS: CLOPIDOGREL BISULFATE 75 MG TAB PO SCH (09:30)
[2019-09-26] MEDS: SERTRALINE HCL 50 MG TAB PO SCH (09:30)
[2019-09-26] MEDS: ISOSORBIDE MONONITRATE ER 60 MG TAB PO SCH (09:30)
[2019-09-26] MEDS: ALLOPURINOL 300 MG TAB PO SCH (09:30)
[2019-09-26] MEDS: predniSONE 20 MG TAB PO SCH (09:30)
[2019-09-26] MEDS: CARVEDILOL 12.5 MG TAB PO SCH ×2 (10:08→22:55)
[2019-09-26] MEDS: MYCOPHENOLATE 250 MG CAP PO SCH ×2 (10:08→21:44)
[2019-09-26 11:15] LABS: Potassium 4.2 mmol/L (3.5-5.1)
[2019-09-26 12:14] VITALS: BP 139/76
[2019-09-26] MEDS ORDERED: MAGNESIUM CITRATE SOLUTION 300 ML BTL PO ONE (14:15)
--- NOTE | 2019-09-26 15:45 | NUR ---
IV removal IV left forearm infiltrated.IV DC'd with clean sterile technique, catheter fully intact. Pressure dressing applied to site. Patient tolerated well.
--- NOTE | 2019-09-26 16:00 | NUR ---
IV insertion IV access obtained, via clean sterile technique by inserting 20 gauge catheter at right forearm after one attempt. IV secured properly. No trauma to site. Patient tolerated well.
[2019-09-26 16:37] VITALS: BP 148/78
--- NOTE | 2019-09-26 19:30 | NUR ---
RECEIVED PATIENT IN BED, AAOX4. NO DISTRESS NOTED. AFEBRILE. INTRODUCED MYSELF TO THE PATIENT. ORIENTATION GIVEN. MILD BLE WEAKNESS WITH MILD BLE SWELLING NOTED. SKIN ASSESSMENT DONE. DENIES ANY PAIN NOW. MILD SOB NOTED ON EXERTION. POCS DISCUSSED WITH PATIENT AND SHOWED UNDERSTANDING. BED KEPT ON LOWEST POSITION. SIDE RAILS UP. CALL LIGHT/TABLE IN REACH. KEPT COMFORTABLE.
[2019-09-26] MEDS: INSULIN LANTUS (GLARGINE) 1 /0.01ml (100units/ml) SC SCH (21:45)
[2019-09-26 22:00] VITALS: BP 113/61
[2019-09-27] MEDS: IPRATROPIUM BROM 0.5 MG/2.5ML INH SOL NEB SCH ×4 (00:22→19:11)
--- NOTE | 2019-09-27 00:28 | NUR ---
Respiratory note: SWITCHED PT TO OXYMIZER POST TX. PTS SATS HAVE BEEN LOW ON NC, 87-90%. PT NOW ON 5L OXYMIZER, SATS 93%.
[2019-09-27] MEDS: HYDROcodone-ACET 10/325MG TAB PO PRN ×3 (01:37→21:40)
[2019-09-27 05:00] VITALS: BP 114/62
[2019-09-27] MEDS: InsuLIN REG 1unit/0.01ml Soln (100units/ml) SC SCH ×4 (05:53→22:06)
[2019-09-27] MEDS: TACROLIMUS 1 MG CAP PO SCH ×2 (05:53→18:15)
[2019-09-27] MEDS: METOCLOPRAMIDE HCL 5MG/ml INJ 2ml VIAL IV SCH ×3 (05:53→21:39)
[2019-09-27] MEDS: ACCU-CHEK COMFORT CURVE STRIP VI SCH ×4 (05:53→22:06)
[2019-09-27] MEDS: SODIUM CHLORIDE 0.9% 1,000 ML IV SCH ×2 (05:54→18:16)
--- NOTE | 2019-09-27 06:06 | NUR ---
ON BED, ASLEEP. STABLE. NO DISTRESS NOTED. FOR MORE CARE AND MANAGEMENT.
[2019-09-27 06:17] LABS: BUN/Creatinine Ratio 33.5; Calcium 8.4 mg/dL (8.5-10.1); Potassium 3.9 mmol/L (3.5-5.1)
--- NOTE | 2019-09-27 06:35 | NUR ---
BUN= 120. KNOWN HIGH. WILL ENDORSE TO AM SHIFT NURSE.
--- NOTE | 2019-09-27 08:00 | NUR ---
OPENING SHIFT NOTE ASSUMED CARE OF PATIENT. PATIENT IS AWAKE AND ALERT. NO SOB OR SIGNS OF DISTRESS NOTED. INSTRUCTED ON POC AND TO CALL FOR HELP PRN. BED IN LOWEST POSITION WITH SIDE RAILS UP X2. WILL CONTINUE TO MONITOR Q1HR.
[2019-09-27 08:24] VITALS: BP 131/72
[2019-09-27] MEDS ORDERED: ceFAZolin 1GM/50ML 50 ML IV ONE (09:07)
[2019-09-27] MEDS: PANTOPRAZOLE 40 MG/10 ML VIAL INJ IV SCH (09:45)
[2019-09-27] MEDS: ALPRAZolam 0.25 MG TAB PO SCH ×2 (09:45→21:38)
[2019-09-27] MEDS: MYCOPHENOLATE 250 MG CAP PO SCH ×2 (09:45→21:38)
[2019-09-27] MEDS: SERTRALINE HCL 50 MG TAB PO SCH (09:46)
[2019-09-27] MEDS: ALLOPURINOL 300 MG TAB PO SCH (09:46)
[2019-09-27] MEDS: ISOSORBIDE MONONITRATE ER 60 MG TAB PO SCH (09:46)
[2019-09-27] MEDS: predniSONE 20 MG TAB PO SCH (09:47)
[2019-09-27] MEDS: CLOPIDOGREL BISULFATE 75 MG TAB PO SCH (09:47)
[2019-09-27] MEDS: CARVEDILOL 12.5 MG TAB PO SCH ×2 (09:48→21:37)
[2019-09-27 13:00] VITALS: BP 139/65
--- NOTE | 2019-09-27 13:30 | NUR ---
NOTIFIED DR RÍOS OF PATIENT OXYGEN SATURATION OF 85% ON 3L NASAL CANULA. ORDERED BREATHING TREATMENTS Q6HRS AND SAID TO KEEP PT AT 3L OXYGEN.
--- NOTE | 2019-09-27 14:52 | NUR ---
Assessment Pt is a 73 yr old alert and oriented male. Pt was a ICU downgrade. Pt lives with , Brenda, who is his emergency contact at [phone]. Pt stated that prior to admit, pt was ambulatory, and independent with ADL's. Pt uses in home . Pt stated that he had a heart transplant 12 yrs ago and has been suffering with complication involved with it. Pt received [employer] and [employer] income and has no interest in AD. Pt's will transport home upon d/c. Pt plans to d/c home upon medical clearance. No needs or concerns expressed at this time. Addendum: 09/27/19 at 1458 by MILEY MOORE Amended: Links added.
--- NOTE | 2019-09-27 15:17 | NUR ---
NOTIFIED DR STEVENS OF PTS CRITICAL BUN VALUE OF 120
[2019-09-27 16:45] VITALS: BP 149/64
[2019-09-27] MEDS: BUMETANIDE 1mg/4ml VIAL (0.25mg/ml) IV SCH ×2 (17:48→21:39)
[2019-09-27] MEDS: DOPamine 1600MCG/ML D5W 250 ML IV SCH (18:16)
[2019-09-27] MEDS: LEVALBUTEROL HCL 1.25 MG/3 ML NEB NEB SCH (19:11)
--- NOTE | 2019-09-27 19:30 | NUR ---
Respiratory note: PLACED PT ON 5L OXYMIZER TO GET SAT OF 92%. PT SAT ON 3LNC WAS 82. PT IS A MOUTH BREATHER
--- NOTE | 2019-09-27 20:00 | NUR ---
Opening Shift Note Assumed care of patient, awake and alert. No S/S of distress/SOB. Patient reports 10/10 chest ache. Patient will be medicated for pain per MD order. Barrier cream applied to area of redness in perineum and optifoam sacral dressing applied. Patient is on 5 liters of oxygen via Oxymizer. Instructed on POC and to call for assist PRN, will continue to monitor for changes Q1hr and PRN.
[2019-09-27 20:32] VITALS: BP 149/64
[2019-09-27] MEDS: SENNA 8.6 MG TAB PO SCH (21:38)
[2019-09-27] MEDS: DOCUSATE SOD 100 MG CAP PO SCH (21:38)
[2019-09-27] MEDS: INSULIN LANTUS (GLARGINE) 1 /0.01ml (100units/ml) SC SCH (22:06)
[2019-09-27 22:40] VITALS: BP 149/70
[2019-09-28] MEDS: IPRATROPIUM BROM 0.5 MG/2.5ML INH SOL NEB SCH ×5 (00:10→23:34)
[2019-09-28] MEDS: LEVALBUTEROL HCL 1.25 MG/3 ML NEB NEB SCH ×5 (00:10→23:34)
[2019-09-28] MEDS: DOPamine 1600MCG/ML D5W 250 ML IV SCH (04:19)
[2019-09-28] MEDS: SODIUM CHLORIDE 0.9% 1,000 ML IV SCH ×2 (04:30→14:30)
[2019-09-28 05:32] VITALS: BP 116/71
[2019-09-28] MEDS: HYDROcodone-ACET 10/325MG TAB PO PRN ×3 (06:34→22:02)
[2019-09-28] MEDS: TACROLIMUS 1 MG CAP PO SCH ×2 (06:35→17:46)
[2019-09-28] MEDS: InsuLIN REG 1unit/0.01ml Soln (100units/ml) SC SCH ×4 (06:36→22:00)
[2019-09-28] MEDS: ACCU-CHEK COMFORT CURVE STRIP VI SCH ×4 (06:36→22:00)
[2019-09-28] MEDS: METOCLOPRAMIDE HCL 5MG/ml INJ 2ml VIAL IV SCH ×3 (06:36→22:33)
--- NOTE | 2019-09-28 07:00 | NUR ---
lau care done at this time.
--- NOTE | 2019-09-28 07:15 | NUR ---
Closing Note patient resting in bed with Oxymizer on, even and unlabored respirations, no s/s of distress. Bed low locked position with side rails up x 2 and call light within reach, bed alarm on. Endorsed care to day shift RN.
--- NOTE | 2019-09-28 07:45 | NUR ---
Opening Shift Note Assumed care of patient, awake and alert. Patient is on 4L O2 via Oxymizer with no S/S of distress/SOB. Respirations are even and unlabored. Patient is complaining of chest soreness/discomfort secondary to chest compressions. Will follow MD order and medicate. Bed is in lowest position with 2x side rails up for safety, call light is within reach. Instructed on POC and to call for assist PRN, will continue to monitor for changes Q1hr and PRN.
[2019-09-28 08:06] LABS: BUN/Creatinine Ratio 36.4; Calcium 8.3 mg/dL (8.5-10.1); Potassium 4.4 mmol/L (3.5-5.1)
[2019-09-28 09:00] VITALS: BP 161/75
[2019-09-28] MEDS: CLOPIDOGREL BISULFATE 75 MG TAB PO SCH (09:45)
[2019-09-28] MEDS: PANTOPRAZOLE 40 MG/10 ML VIAL INJ IV SCH (09:45)
[2019-09-28] MEDS: ISOSORBIDE MONONITRATE ER 60 MG TAB PO SCH (09:45)
[2019-09-28] MEDS: DOCUSATE SOD 100 MG CAP PO SCH ×2 (09:45→22:31)
[2019-09-28] MEDS: ALLOPURINOL 300 MG TAB PO SCH (09:45)
[2019-09-28] MEDS: predniSONE 20 MG TAB PO SCH (09:46)
[2019-09-28] MEDS: SERTRALINE HCL 50 MG TAB PO SCH (09:46)
[2019-09-28] MEDS: ALPRAZolam 0.25 MG TAB PO SCH ×2 (09:46→22:31)
[2019-09-28] MEDS: MYCOPHENOLATE 250 MG CAP PO SCH ×2 (09:52→22:33)
--- NOTE | 2019-09-28 10:30 | NUR ---
PAGED DR RÍOS TO CLARIFY COMMUNICATION ORDER REGARDING DOPAMINE PER COMMUNICATION ORDER IT STATED THAT DOPAMINE SHOULD BE AT A FIXED RATE OF 2.5 ML/HR AND IT IS CURRENTLY SET AT 2.5 MCG/KG/MIN . PER DR RÍOS IT SHOULD BE 2.5 MCG/KG/MIN WHICH IS CURRENTLY RUNNING AT 10.509ML/HR NO ORDERS RECEIVED AT THIS TIME.
--- NOTE | 2019-09-28 10:33 | NUR ---
PATIENT AMBULATING IN HALLWAY WITH PT.
[2019-09-28] MEDS: CARVEDILOL 12.5 MG TAB PO SCH ×2 (10:41→22:33)
[2019-09-28 13:00] VITALS: BP 114/49
[2019-09-28] MEDS ORDERED: PRED1PAK7 PO (16:10)
[2019-09-28] MEDS ORDERED: FURO80TA3 PO (16:10)
[2019-09-28 17:00] VITALS: BP 137/87
--- NOTE | 2019-09-28 20:15 | NUR ---
Opening Shift Note Assumed care of patient, awake and alert. No S/S of distress/SOB. Patient is on 3 liters of oxygen via nasal cannula. Patient reports 10/10 chest ache. Patient will be medicated for pain per MD order. Instructed on POC and to call for assist PRN, will continue to monitor for changes Q1hr and PRN.
[2019-09-28 22:00] VITALS: BP 139/79
[2019-09-28] MEDS: INSULIN LANTUS (GLARGINE) 1 /0.01ml (100units/ml) SC SCH (22:00)
[2019-09-28] MEDS: SENNA 8.6 MG TAB PO SCH (22:30)
--- NOTE | 2019-09-28 22:33 | NUR ---
Barrier cream applied to area of redness in patient perineum and area of redness in buttocks. Optifoam sacral dressing applied.
--- NOTE | 2019-09-29 00:17 | NUR ---
Respiratory note: PT REQUESTED TO COME OFF CPAP AT THIS TIME. EXPLAINED TO PT THE BENEFITS OF CPAP, PT REFUSED TO CONTINUE USING CPAP. PT PLACED ON 2L NC AT THIS TIME. PT AGREED TO REMAIN IN BEDSIDE PULSE OX TO MONITOR SPO2 WHILE HE SLEEPS. RN AT BEDSIDE. NO RESPIRATORY DISTRESS NOTED, HR 92 SPO2 92% ON 2L NC. WILL CONTINUE TO MONITOR. Addendum: 09/29/19 at 0031 by MICHAELA PRICE, RT PT ON 3L NC
[2019-09-29] MEDS: SODIUM CHLORIDE 0.9% 1,000 ML IV SCH ×3 (00:30→20:12)
[2019-09-29 05:00] VITALS: BP 150/70
[2019-09-29] MEDS: HYDROcodone-ACET 10/325MG TAB PO PRN ×3 (05:32→22:28)
[2019-09-29] MEDS: DOPamine 1600MCG/ML D5W 250 ML IV SCH (05:34)
[2019-09-29] MEDS: IPRATROPIUM BROM 0.5 MG/2.5ML INH SOL NEB SCH ×3 (05:49→18:32)
[2019-09-29] MEDS: LEVALBUTEROL HCL 1.25 MG/3 ML NEB NEB SCH ×3 (05:49→18:32)
[2019-09-29 06:09] LABS: Calcium 8.2 mg/dL (8.5-10.1); Potassium 4.6 mmol/L (3.5-5.1)
[2019-09-29 06:11] LABS: BUN/Creatinine Ratio 35.1
[2019-09-29] MEDS: TACROLIMUS 1 MG CAP PO SCH ×2 (06:13→17:41)
[2019-09-29] MEDS: METOCLOPRAMIDE HCL 5MG/ml INJ 2ml VIAL IV SCH ×3 (06:13→22:26)
[2019-09-29] MEDS: InsuLIN REG 1unit/0.01ml Soln (100units/ml) SC SCH ×4 (06:28→22:27)
[2019-09-29] MEDS: ACCU-CHEK COMFORT CURVE STRIP VI SCH ×4 (06:28→22:28)
--- NOTE | 2019-09-29 07:00 | NUR ---
Closing Note patient resting in bed with 3L NC on with continuous pulse ox on, o2 sat 92%, even and unlabored respirations, no s/s of distress. Bed low locked position with side rails up x 2 and call light within reach, bed alarm on. Endorsed care to day shift RN.
[2019-09-29 09:00] VITALS: BP 163/90
[2019-09-29] MEDS: PANTOPRAZOLE 40 MG/10 ML VIAL INJ IV SCH (09:19)
[2019-09-29] MEDS: ALLOPURINOL 300 MG TAB PO SCH (09:20)
[2019-09-29] MEDS: CARVEDILOL 12.5 MG TAB PO SCH ×2 (09:20→22:27)
[2019-09-29] MEDS: ALPRAZolam 0.25 MG TAB PO SCH ×2 (09:20→22:27)
[2019-09-29] MEDS: DOCUSATE SOD 100 MG CAP PO SCH ×2 (09:20→22:26)
[2019-09-29] MEDS: CLOPIDOGREL BISULFATE 75 MG TAB PO SCH (09:20)
[2019-09-29] MEDS: SERTRALINE HCL 50 MG TAB PO SCH (09:20)
[2019-09-29] MEDS: predniSONE 20 MG TAB PO SCH (09:21)
[2019-09-29] MEDS: ISOSORBIDE MONONITRATE ER 60 MG TAB PO SCH (09:21)
[2019-09-29] MEDS: MYCOPHENOLATE 250 MG CAP PO SCH ×2 (09:21→22:26)
--- NOTE | 2019-09-29 12:03 | NUR ---
Nutrition Follow-up Notes Wt.: 110.2 kg based on bed scale today Pt's on oxygen via nasal cannula, sitting up on bed, c/o generalized body pain (4/10) when rounded this morning. Pt states that he usually weighs around 220 lbs, most likely lost weight d/t not feeling well and not eating like he used to. 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 Pt's currently on Chopped Fine CCHO 60 gms/meal, Cardiac diet with fair PO intake aeb 60% ave. consumed meals (c6) in last 2.5 days. Encouraged to increase food intake through small frequent meals as tolerated. Provide verbal and written nutrition educ. re: current therapeutic diet and he verbalized understanding. Est. Needs ABW [id number] kcal (23-25 kcal/kgBW), 72-91 gms pro (0.8-1.0 gms/kgBW). Will continue to monitor pertinent labs and reassess nutrient need prn Labs: Na 135 L, Cl 96 L, BUN 118 H, Cr 3.36 H, Ca 8.2 L, ALB 3.2 L. Skin: Victorino scale 18, mod risk, pt`s right finger thumb incision per RN doc. Pls refer to latest centrifuge separator operator"s notes for details re: tx plans. GI: Pt's has no bowel activity since 09/21/19 per transfer table operator. Noted pt's on Colace, Lactulose, Senokot. PES: Altered nutrition related lab values r/t current/chronic medical condition aeb elev RFT mod hypoalb, hyperglycemia, hypocalcemia Resolved: Impaired swallowing r/t current medical condition aeb pt`s intubated sedated with order of NPO Decreased nutrient needs r/t adiposity aeb pt`s high BMI of 36.5 kgm2 Will continue to monitor PO intake, skin status, pertinent labs and weight trend. F/u in 3 to 5 days. Rec.: 1.) Consider Chopped Fine Consistent Standard Carb: 60 gms/meal, Cardiac, Renal Specific: 70 gms pro, 2 gms Na diet, while renal labs continue trending up, not on dialysis. 2.) Consider daily MVI with minerals and Asc acid 500 mgs BID. 3.) If Albumin continues trending down with improved renal labs, consider Prostat 1 pkt BID. 4.) Consider close supervision and feeding assistance prn during meals. 5.) Refer to CDE/RD for further nutrition educ. and weight monitoring upon discharge. 6.) Continue current plan of care.
--- NOTE | 2019-09-29 12:40 | NUR ---
PT FOUND SITTING AT SIDE OF BED, BOTH IV CATHETERS DISLODGED FROM SITE, CATHETERS APPEAR INTACT; AND BLEEDING EVIDENT. BLEEDING STOPPED, AND CLEAN ENVIRONMENT ACHIEVED, COMPLETE BED LINEN CHANGE. PT ORIENTED x3 AT THIS TIME, O2 SAT: 95% ON 2LNC, REPORTED PAIN AND PT WAS MEDICATED PER EMAR. NEW IV INSERTED TO RFA#20, PT TOLERATED PROCEDURE WELL. IV FLUIDS RESUMED PER ORDER. BED LOCKED AND IN LOWEST POSITION, CALL LIGHT WITHIN REACH. AT BEDSIDE.
[2019-09-29 13:00] VITALS: BP 155/94
--- NOTE | 2019-09-29 16:30 | NUR ---
ASSISTED PT TO TRANSFER FROM BEDSIDE CHAIR TO BED, PT TOLERATED ACTIVITY WELL. COMFORTABLE ENVIRONMENT PROVIDED. COTO CATHETER SECURED WITH STAT LOCK. CATHETER FREE OF KINK AND COLLECTING BAG BELOW BLADDER.
[2019-09-29 16:56] VITALS: BP 118/68
--- NOTE | 2019-09-29 19:00 | NUR ---
Opening Shift Note Assumed care of patient, awake and alert. No S/S of distress/SOB or pain. Instructed on POC and to call for assist PRN, will continue to monitor for changes Q1hr and PRN.
[2019-09-29 22:00] VITALS: BP 146/69
[2019-09-29] MEDS: SENNA 8.6 MG TAB PO SCH (22:27)
[2019-09-29] MEDS: INSULIN LANTUS (GLARGINE) 1 /0.01ml (100units/ml) SC SCH (22:28)
--- NOTE | 2019-09-30 00:10 | NUR ---
Patient complaining of abdominal pain but wanted RN to perform and EKG to assess his heart. Patient in no discomfort or distress.
--- NOTE | 2019-09-30 00:15 | NUR ---
Hospitalist reviewed EKG strip. RN to continue to monitor and assess patient. Patient in no discomfort or distress. Patient now sleeping. Vitals were as follows: BP 154/80, HR 84, RR 20, Pulse ox 95%, 0/10 pain T: 98.2
[2019-09-30 05:00] VITALS: BP 152/86
[2019-09-30] MEDS: SODIUM CHLORIDE 0.9% 1,000 ML IV SCH (06:01)
[2019-09-30] MEDS: METOCLOPRAMIDE HCL 5MG/ml INJ 2ml VIAL IV SCH ×3 (06:12→22:14)
[2019-09-30] MEDS: InsuLIN REG 1unit/0.01ml Soln (100units/ml) SC SCH ×4 (06:35→22:13)
[2019-09-30] MEDS: ACCU-CHEK COMFORT CURVE STRIP VI SCH ×4 (06:35→22:14)
[2019-09-30] MEDS: TACROLIMUS 1 MG CAP PO SCH ×2 (06:35→17:45)
[2019-09-30] MEDS: LEVALBUTEROL HCL 1.25 MG/3 ML NEB NEB SCH ×4 (07:01→18:53)
[2019-09-30] MEDS: IPRATROPIUM BROM 0.5 MG/2.5ML INH SOL NEB SCH ×4 (07:02→18:52)
[2019-09-30] MEDS: DOPamine 1600MCG/ML D5W 250 ML IV SCH (07:48)
[2019-09-30 09:00] VITALS: BP 163/86
[2019-09-30] MEDS: PANTOPRAZOLE 40 MG/10 ML VIAL INJ IV SCH (09:31)
[2019-09-30] MEDS: ALLOPURINOL 300 MG TAB PO SCH (09:32)
[2019-09-30] MEDS: CARVEDILOL 12.5 MG TAB PO SCH ×2 (09:32→22:13)
[2019-09-30] MEDS: CLOPIDOGREL BISULFATE 75 MG TAB PO SCH (09:32)
[2019-09-30] MEDS: DOCUSATE SOD 100 MG CAP PO SCH ×2 (09:32→22:12)
[2019-09-30] MEDS: ISOSORBIDE MONONITRATE ER 60 MG TAB PO SCH (09:32)
[2019-09-30] MEDS: MYCOPHENOLATE 250 MG CAP PO SCH ×2 (09:32→22:11)
[2019-09-30] MEDS: SERTRALINE HCL 50 MG TAB PO SCH (09:32)
[2019-09-30] MEDS: predniSONE 20 MG TAB PO SCH (09:33)
[2019-09-30] MEDS: ALPRAZolam 0.25 MG TAB PO SCH ×2 (09:33→22:11)
--- NOTE | 2019-09-30 11:20 | NUR ---
LEFT MIDDLE FINGER BLEEDING, STOPPED BLEEDING, DRY DRESSING APPLIED. NO ACTIVE BLEEDING AT MOMENT. COMFORTABLE ENVIRONMENT PROVIDED, HYGIENE CARE, COMPLETE BED LINEN CHANGE. COTO CATHETER CARE PROVIDED, CATHETER SECURED WITH STAT LOCK. BED LOCKED AND IN LOWEST POSITION, CALL LIGHT WITHIN REACH. WILL CONTINUE TO MONITOR.
[2019-09-30 13:00] VITALS: BP 150/76
[2019-09-30] MEDS: HYDROcodone-ACET 10/325MG TAB PO PRN (15:07)
[2019-09-30] MEDS ORDERED: MAGNESIUM CITRATE SOLUTION 300 ML BTL PO ONE (15:30)
--- NOTE | 2019-09-30 15:30 | NUR ---
COTO CATHETER DC'D, CATHETER INTACT. PT TOLERATED PROCEDURE WELL.
[2019-09-30 16:57] VITALS: BP 144/81
--- NOTE | 2019-09-30 18:00 | NUR ---
WOUND CARE NOTE: Wound care in to see patient for skin integrity monitoring. Patient has been extubated and now in [facility]/telemetry unit. Patient is resting in bed in Rm. 231. Patient is awake and able to verbalize needs. He's in no stated pain at this time. He's able to assist in turning and repositioning. His current Victorino score is 18. Skin/wound assessment done with the assistance of patient's nurse, KARIME Goddard. Sutured incision to patient's left side of face and Rt forearm display intact pink scar tissue, area is clean and dry, left open to air. Lt thumb incision is intact and dry. Patient accidentally bumped his L middle finger and display partial nail avulsion. Cleansed wound with NS,patted dry with gauze, applied Thera honey gel, non-adherent dressing and secured with CoBan per MD order. Photograph of wounds are taken for reference. No pressure injury noted. Patient tolerated well, reposition for comfort. KARIME Goddard and patient's at bedside. RECOMMENDATION: EOD/PRN dressing change to L middle finger partially avulsed nail per MD order, continuation of all other wound care orders prescribed by MD, continue with skin/wound preventative plan of care, continue monitoring by wound care while patient is hospitalized. Addendum: 09/30/19 at 1851 by Angelia Fournier RN Amended: Links added.
--- NOTE | 2019-09-30 19:30 | NUR ---
Opening Shift Note Assumed care of patient, awake and alert, but with episodes of confusion. No S/S of distress/SOB or pain. Bed in lowest locked position, side rails up x2, call light within reach, bed alarm on. Educated patient on using call light before getting out of bed, pat Instructed on POC and to call for assist PRN, will continue to monitor for changes Q1hr and PRN. Addendum: 10/01/19 at 1959 by CYNTHIA FINNEY RN RN Correction: Sentence should read, Educated patient on using call light before getting out of bed, patient verbalized understanding."
--- NOTE | 2019-09-30 20:00 | NUR ---
Urination Patient able to urinate in bedside commode. Urine noted to be clear and yellow. No s/s of distress. Will continue care.
[2019-09-30 22:00] VITALS: BP 145/80
[2019-09-30] MEDS: SENNA 8.6 MG TAB PO SCH (22:12)
[2019-09-30] MEDS: INSULIN LANTUS (GLARGINE) 1 /0.01ml (100units/ml) SC SCH (22:14)
[2019-10-01] MEDS: HYDROcodone-ACET 10/325MG TAB PO PRN ×2 (01:19→10:31)
[2019-10-01 01:52] VITALS: BP 158/87
[2019-10-01 05:00] VITALS: BP 152/90
--- NOTE | 2019-10-01 05:09 | NUR ---
Bowel Movements Patient had multiple bowel movements throughout shift. Most stools noted to be large, soft, and brown. Two episodes of loose brown stool noted. Patient assisted to bedside commode as tolerated, patient cleaned and linens changed as needed. Will continue care.
[2019-10-01] MEDS: IPRATROPIUM BROM 0.5 MG/2.5ML INH SOL NEB SCH ×4 (05:48→18:21)
[2019-10-01] MEDS: LEVALBUTEROL HCL 1.25 MG/3 ML NEB NEB SCH ×4 (05:48→18:21)
[2019-10-01 06:30] LABS: Albumin 3.1 g/dL (3.4-5.0); Calcium 8.6 mg/dL (8.5-10.1); Potassium 4.4 mmol/L (3.5-5.1)
[2019-10-01 06:32] LABS: BUN/Creatinine Ratio 37.4
[2019-10-01 06:34] LABS: Bilirubin, Total 0.4 mg/dL (0.2-1.0); Phosphorus 3.2 mg/dL (2.5-4.90); Total Protein 6.4 g/dL (6.4-8.2)
[2019-10-01] MEDS: InsuLIN REG 1unit/0.01ml Soln (100units/ml) SC SCH ×4 (06:57→22:31)
[2019-10-01] MEDS: ACCU-CHEK COMFORT CURVE STRIP VI SCH ×4 (06:57→22:31)
[2019-10-01] MEDS: TACROLIMUS 1 MG CAP PO SCH ×2 (07:04→18:15)
[2019-10-01] MEDS: METOCLOPRAMIDE HCL 5MG/ml INJ 2ml VIAL IV SCH ×3 (07:04→22:29)
--- NOTE | 2019-10-01 07:10 | NUR ---
Closing Note Patient lying in bed, eyes closed, respirations even and unlabored, appears asleep. Patient awakens to name and touch. No s/s of distress. Bed in lowest locked position, side rails up x2, call light within reach, bed alarm on. Care endorsed to dayshift RN.
--- NOTE | 2019-10-01 07:22 | NUR ---
Opening Shift Note: Assumed care of patient, awake and alert. No S/S of distress/SOB or pain. Bed in lowest locked position, side rails up x 2, call light in reach. Patient instructed on POC and to call for assist PRN, will continue to monitor for changes Q1hr and PRN.
[2019-10-01 09:00] VITALS: BP 147/74
--- NOTE | 2019-10-01 09:20 | NUR ---
IV insertion: IV access obtained, via clean sterile technique by inserting 20 gauge catheter at right forearm after 1 attempt. IV secured properly. No trauma to site. Patient tolerated well. Patient removed prior IV, Patient educated on need for IV at this time.
--- NOTE | 2019-10-01 09:35 | NUR ---
Patient ambulates buck with physical therapy. Patient tolerated well. Will continue to monitor.
[2019-10-01] MEDS: DOCUSATE SOD 100 MG CAP PO SCH ×2 (09:44→21:54)
[2019-10-01] MEDS: ALPRAZolam 0.25 MG TAB PO SCH ×2 (09:44→21:54)
[2019-10-01] MEDS: CLOPIDOGREL BISULFATE 75 MG TAB PO SCH (09:44)
[2019-10-01] MEDS: PANTOPRAZOLE 40 MG/10 ML VIAL INJ IV SCH (09:44)
[2019-10-01] MEDS: ALLOPURINOL 300 MG TAB PO SCH (09:45)
[2019-10-01] MEDS: CARVEDILOL 12.5 MG TAB PO SCH ×2 (09:46→22:30)
[2019-10-01] MEDS: ISOSORBIDE MONONITRATE ER 60 MG TAB PO SCH (09:46)
[2019-10-01] MEDS: predniSONE 20 MG TAB PO SCH (09:46)
[2019-10-01] MEDS: SERTRALINE HCL 50 MG TAB PO SCH (09:46)
[2019-10-01] MEDS: MYCOPHENOLATE 250 MG CAP PO SCH ×2 (10:16→22:29)
[2019-10-01 13:00] VITALS: BP 150/80
--- NOTE | 2019-10-01 13:00 | NUR ---
DR. Kim notified of 10/01 BUN of 102. states "its better." Will continue to monitor.
[2019-10-01] MEDS: DOPamine 1600MCG/ML D5W 250 ML IV SCH (16:27)
[2019-10-01 16:31] VITALS: BP 135/61
--- NOTE | 2019-10-01 19:17 | NUR ---
Closing note: Patient laying in bed, no S/S of distress or pain at this time. Care endorsed to NAM Veloz.
--- NOTE | 2019-10-01 19:30 | NUR ---
Opening Shift Note Assumed care of patient, awake and alert. No S/S of distress/SOB or pain. Bed in lowest locked position, side rails up x2, call light within reach, bed alarm on. Educated patient on using call light before getting out of bed, patient verbalized understanding. Instructed on POC and to call for assist PRN, will continue to monitor for changes Q1hr and PRN.
[2019-10-01] MEDS: SENNA 8.6 MG TAB PO SCH (21:54)
[2019-10-01 22:00] VITALS: BP 162/78
[2019-10-01] MEDS: INSULIN LANTUS (GLARGINE) 1 /0.01ml (100units/ml) SC SCH (22:31)
[2019-10-02] MEDS: LEVALBUTEROL HCL 1.25 MG/3 ML NEB NEB SCH ×4 (00:03→19:01)
[2019-10-02] MEDS: IPRATROPIUM BROM 0.5 MG/2.5ML INH SOL NEB SCH ×4 (00:03→19:01)
--- NOTE | 2019-10-02 00:22 | NUR ---
CPAP PLACED ON [facility] CPAP UNIT WITH CPAP 10. CONTINUOUS POX MONITOR AT BEDSIDE. PT IS WEARING A WEARING M/L NASAL CPAP MASK. NO SKIN BREAKDOWN NOTED. 3L 02 BLEED IN ATTACHED TO CIRCUIT. MED NEB TX ADMINISTERED PRIOR TO PLACEMENT. NO RESPIRATORY DISTRESS NOTED. WILL CONTINUE TO MONITOR PT.
[2019-10-02 05:00] VITALS: BP 152/79
--- NOTE | 2019-10-02 06:10 | NUR ---
Critical BUN BUN 94, noted to be improving. MD's aware of patient's status. Will continue care/
[2019-10-02] MEDS: TACROLIMUS 1 MG CAP PO SCH ×2 (06:32→17:30)
[2019-10-02] MEDS: ACCU-CHEK COMFORT CURVE STRIP VI SCH ×4 (06:32→21:59)
[2019-10-02] MEDS: METOCLOPRAMIDE HCL 5MG/ml INJ 2ml VIAL IV SCH ×3 (06:32→22:00)
[2019-10-02 06:38] LABS: Sodium 136 mmol/L (136-145)
[2019-10-02 06:39] LABS: Alanine Aminotransferase 13 U/L (16-61); Alkaline Phosphatase 85 U/L (45-117); Anion Gap 4 (5-15); Aspartate Aminotransferase 9 U/L (15-37); BUN/Creatinine Ratio 35.2; Blood Urea Nitrogen 94 mg/dL (7-18); Calcium 8.5 mg/dL (8.5-10.1); Carbon Dioxide 30 mmol/L (21-32); Chloride 102 mmol/L (98-107); GFR African American 30 mL/min; GFR Non-African American 25 mL/min; Glucose 196 mg/dL (74-106)
[2019-10-02 06:40] LABS: Albumin 2.9 g/dL (3.4-5.0); Bilirubin, Total 0.4 mg/dL (0.2-1.0); Total Protein 6.5 g/dL (6.4-8.2)
--- NOTE | 2019-10-02 06:40 | NUR ---
Removed patient from CPAP machine and placed patient on 3 liters oxygen via nasal cannula. Patient tolerated well, oxygen saturation at 92%. Will continue to monitor. Addendum: 10/02/19 at 0734 by CYNTHIA FINNEY RN RN ADDITION: RT made aware.
[2019-10-02] MEDS: HYDROcodone-ACET 10/325MG TAB PO PRN (06:58)
[2019-10-02] MEDS: InsuLIN REG 1unit/0.01ml Soln (100units/ml) SC SCH ×4 (07:04→22:31)
--- NOTE | 2019-10-02 07:15 | NUR ---
Closing Note Patient lying in bed, awake and alert. No s/s of distress. Bed in lowest locked position, side rails up x2, call light within reach, bed alarm on. Will continue to monitor and endorse care to dayshift RN.
--- NOTE | 2019-10-02 07:22 | NUR ---
Opening Shift Note: Assumed care of patient. Patient currently sleeping. On 3 LPM NC. Dopamine drip running. No S/S of distress/SOB or pain at this time. Bed in lowest locked position, side rails up x2, call light within reach. Patient will be instructed on POC and to call for assist PRN, will continue to monitor for changes Q1hr and PRN.
[2019-10-02 09:27] VITALS: BP 166/93
[2019-10-02] MEDS: PANTOPRAZOLE 40 MG/10 ML VIAL INJ IV SCH (10:42)
[2019-10-02] MEDS: CARVEDILOL 12.5 MG TAB PO SCH ×2 (10:44→21:59)
[2019-10-02] MEDS: MYCOPHENOLATE 250 MG CAP PO SCH ×2 (10:44→21:58)
[2019-10-02] MEDS: CLOPIDOGREL BISULFATE 75 MG TAB PO SCH (10:44)
[2019-10-02] MEDS: ALLOPURINOL 300 MG TAB PO SCH (10:45)
[2019-10-02] MEDS: ALPRAZolam 0.25 MG TAB PO SCH ×2 (10:45→21:56)
[2019-10-02] MEDS: DOCUSATE SOD 100 MG CAP PO SCH ×2 (10:45→21:56)
[2019-10-02] MEDS: ISOSORBIDE MONONITRATE ER 60 MG TAB PO SCH (10:45)
[2019-10-02] MEDS: predniSONE 20 MG TAB PO SCH (10:45)
[2019-10-02] MEDS: SERTRALINE HCL 50 MG TAB PO SCH (10:45)
--- NOTE | 2019-10-02 12:17 | NUR ---
During rounding patient was off O2. Patient states "respiratory put my NC back on but didn't connect me, I don't feel anything." Patient placed back on 3 LMP NC at this time. Will continue to monitor patient.
[2019-10-02 12:34] VITALS: BP 152/73
--- NOTE | 2019-10-02 13:35 | NUR ---
Patient ambulated the halls with physical therapy. Patient tolerated well. Will continue to monitor.
[2019-10-02] MEDS: DOPamine 1600MCG/ML D5W 250 ML IV SCH (14:24)
--- NOTE | 2019-10-02 14:27 | NUR ---
Patient ambulated to restroom with standby assist. Patient tolerated activity well. Will continue to monitor.
[2019-10-02] MEDS ORDERED: ACETAMINOPHEN 500 MG TAB PO PRN (16:15)
[2019-10-02 16:30] VITALS: BP 155/86
--- NOTE | 2019-10-02 16:49 | NUR ---
Dr. Perez at bedside. Discussed POC with patient and family. Patient verbally agrees. Will continue to monitor.
--- NOTE | 2019-10-02 17:10 | NUR ---
Doctor Perez called. New orders placed. Read back and verified.
--- NOTE | 2019-10-02 19:16 | NUR ---
Closing note: Patient sitting in bedside chair. No S/S of pain, SOB, or distress at this time. Care endorsed to [facility] KARIME Veloz.
[2019-10-02 21:52] VITALS: BP 161/79
[2019-10-02] MEDS: SENNA 8.6 MG TAB PO SCH (21:56)
[2019-10-02] MEDS: INSULIN LANTUS (GLARGINE) 1 /0.01ml (100units/ml) SC SCH (22:31)
--- NOTE | 2019-10-03 00:07 | NUR ---
Respiratory note: PT REMAINS ON CPAP AND IS SLEEPING WHEN ENTERING ROOM. PT REFUSED BREATHING TX AND STATES HE JUST WANTS TO SLEEP. NO RESP DISTRESS NOTED. SPO2 95%, HR 81, RR 18. WILL CONTINUE TO MONITOR.
[2019-10-03 04:49] VITALS: BP 143/77
[2019-10-03 05:25] LABS: Basophils # (auto) 0 uL; Basophils % (auto) 0.2 % (0.0-2.0); Eosinophils # (auto) 0 uL; Eosinophils % (auto) 0.1 % (0.0-7.0); Hemoglobin 10.2 g/dL (13.5-17.5); Lymphocytes # (auto) 0.9 uL; Mean Corpuscular Hemoglobin 27.2 pg (28.0-32.0); Mean Corpuscular Hgb Conc. 31.8 g/dL (32.0-36.0); Mean Corpuscular Volume 85.5 fL (80.0-100.0); Monocytes # (auto) 0.5 uL; Monocytes % (auto) 5.5 % (0.0-12.0); Neutrophils # (auto) 8.2 uL; Neutrophils % (auto) 85.2 % (37.0-80.0); Platelet Count (auto) 283 10^3/uL (140-450); Red Blood Cells 3.74 10^6/uL (4.5-5.90); Red Cell Distribution Width 18.8 % (11.8-14.3); White Blood Cell 9.6 10^3/uL (4.4-10.8)
[2019-10-03 05:43] LABS: Calcium 8.5 mg/dL (8.5-10.1); Potassium 4.8 mmol/L (3.5-5.1)
[2019-10-03 05:48] LABS: BUN/Creatinine Ratio 32.8; Bilirubin, Total 0.4 mg/dL (0.2-1.0); Total Protein 6.4 g/dL (6.4-8.2)
[2019-10-03] MEDS: IPRATROPIUM BROM 0.5 MG/2.5ML INH SOL NEB SCH ×3 (06:01→11:43)
[2019-10-03] MEDS: LEVALBUTEROL HCL 1.25 MG/3 ML NEB NEB SCH ×3 (06:01→11:43)
[2019-10-03] MEDS: ACCU-CHEK COMFORT CURVE STRIP VI SCH ×2 (06:38→11:30)
[2019-10-03] MEDS: TACROLIMUS 1 MG CAP PO SCH (06:38)
[2019-10-03] MEDS: METOCLOPRAMIDE HCL 5MG/ml INJ 2ml VIAL IV SCH ×2 (06:38→14:00)
--- NOTE | 2019-10-03 06:52 | NUR ---
Critical BUN BUN 94, same as previous draw. Dr. Kim notified, no response at this time, enid SCHAFFER made aware.
[2019-10-03] MEDS: InsuLIN REG 1unit/0.01ml Soln (100units/ml) SC SCH ×2 (06:53→12:37)
--- NOTE | 2019-10-03 07:14 | NUR ---
Opening Shift Note: Assumed care of patient, awake and alert. No S/S of distress/SOB. Patient states pain leve Insructed on POC and to callfor assist PRN, will continue to monitor for changes Q1hr and PRN. Addendum: 10/03/19 at 0813 by PETR MEIER RN RN Patient states pain level 10/10. Bed in lowest locked position, side rails up x 2, call light within reach. Bed alarm on at this time. Patient on 3 LPM NC.
[2019-10-03] MEDS: HYDROcodone-ACET 10/325MG TAB PO PRN (08:06)
[2019-10-03 09:00] VITALS: BP 169/73
[2019-10-03] MEDS: PANTOPRAZOLE 40 MG/10 ML VIAL INJ IV SCH (10:11)
[2019-10-03] MEDS: ALLOPURINOL 300 MG TAB PO SCH (10:11)
[2019-10-03] MEDS: ALPRAZolam 0.25 MG TAB PO SCH (10:12)
[2019-10-03] MEDS: predniSONE 20 MG TAB PO SCH (10:12)
[2019-10-03] MEDS: CLOPIDOGREL BISULFATE 75 MG TAB PO SCH (10:12)
[2019-10-03] MEDS: MYCOPHENOLATE 250 MG CAP PO SCH (10:12)
[2019-10-03] MEDS: ISOSORBIDE MONONITRATE ER 60 MG TAB PO SCH (10:12)
[2019-10-03] MEDS: SERTRALINE HCL 50 MG TAB PO SCH (10:13)
[2019-10-03] MEDS: CARVEDILOL 12.5 MG TAB PO SCH (10:13)
[2019-10-03] MEDS: DOCUSATE SOD 100 MG CAP PO SCH (10:13)
--- NOTE | 2019-10-03 10:57 | NUR ---
Dr. Kim at bedside. Discussed POC with patient. Patient verbally agreed. Will continue to monitor.
[2019-10-03 13:00] VITALS: BP 128/74
[2019-10-03 14:44] VITALS: BP 128/74
--- NOTE | 2019-10-03 16:20 | NUR ---
MRSA swab collected and sent.
--- NOTE | 2019-10-03 16:31 | NUR ---
Discharge planning per consult, patient has order for home health. Referral sent to [facility] Placed a follow up call, spoke with Loli and was advised that they will accept this patient and start of care will be within 24-48 hours upon discharge. Addendum: 10/03/19 at 1639 by LEIA KOCH Amended: Links added.
== END 2019-10-03 16:24 | disposition home health service (06) | DRG 208 ==
LOC: TELE-WESTW 14:14 → TELE-CENTR 09-22 05:37 → ICU WEST 09-22 15:05 → TELE-EAST 09-25 17:15
PROVIDERS: ADMIT Internal Medicine Cardiovascular Disease; ATTEND Internal Medicine Cardiovascular Disease
PROC: 5A1945Z Respiratory Ventilation, 24-96 Consecutive Hours (ICD-10-PCS; principal; 2019-09-22)
PROC: 0BH17EZ Insertion of Endotracheal Airway into Trachea, Via Natural or Artificial Opening (ICD-10-PCS; 2019-09-22)
PROC: 5A12012 Performance of Cardiac Output, Single, Manual (ICD-10-PCS; 2019-09-22)
PROC: 5A09357 Assistance with Respiratory Ventilation, Less than 24 Consecutive Hours, Continuous Positive Airway Pressure (ICD-10-PCS; 2019-09-28)
PROC: 5A09357 Assistance with Respiratory Ventilation, Less than 24 Consecutive Hours, Continuous Positive Airway Pressure (ICD-10-PCS; 2019-10-02)
PROC: 5A09357 Assistance with Respiratory Ventilation, Less than 24 Consecutive Hours, Continuous Positive Airway Pressure (ICD-10-PCS; 2019-10-03)
DX: J96.21 Acute and chronic respiratory failure with hypoxia (principal); I50.33 Acute on chronic diastolic (congestive) heart failure; G93.41 Metabolic encephalopathy; N17.0 Acute kidney failure with tubular necrosis; N18.4 Chronic kidney disease, stage 4 (severe); E87.1 Hypo-osmolality and hyponatremia; G93.1 Anoxic brain damage, not elsewhere classified; I13.0 Hypertensive heart and chronic kidney disease with heart failure and stage 1 through stage 4 chronic kidney disease, or unspecified chronic kidney disease; Z94.1 Heart transplant status; E87.2 Acidosis; I25.811 Atherosclerosis of native coronary artery of transplanted heart without angina pectoris; J96.22 Acute and chronic respiratory failure with hypercapnia; E87.5 Hyperkalemia; E11.65 Type 2 diabetes mellitus with hyperglycemia; J44.9 Chronic obstructive pulmonary disease, unspecified; D63.1 Anemia in chronic kidney disease; E11.22 Type 2 diabetes mellitus with diabetic chronic kidney disease; E11.41 Type 2 diabetes mellitus with diabetic mononeuropathy; E66.01 Morbid (severe) obesity due to excess calories; E78.5 Hyperlipidemia, unspecified; F17.200 Nicotine dependence, unspecified, uncomplicated; H91.90 Unspecified hearing loss, unspecified ear; H57.02 Anisocoria; E11.42 Type 2 diabetes mellitus with diabetic polyneuropathy; J98.6 Disorders of diaphragm; K59.00 Constipation, unspecified; Z68.36 Body mass index [BMI] 36.0-36.9, adult; Z79.02 Long term (current) use of antithrombotics/antiplatelets; Z79.899 Other long term (current) drug therapy; Z82.3 Family history of stroke; Z83.3 Family history of diabetes mellitus; Z86.73 Personal history of transient ischemic attack (TIA), and cerebral infarction without residual deficits; Z86.74 Personal history of sudden cardiac arrest; Z95.1 Presence of aortocoronary bypass graft; Z98.61 Coronary angioplasty status; Z99.81 Dependence on supplemental oxygen
CPT/HCPCS: 36415; 36600; 70450; 71045; 71046; 74018; 76775; 80048; 80053; 80197; 81001; 82306; 82570; 82728; 82805; 82962; 83540; 83550; 83735; 83880; 83970; 84100; 84156; 84300; 85025; 85610; 85730; 87070; 87081; 87205; 92950; 93005; 94002; 94003; 94640; 94660; 97110; 97116; 97530; A4618; C9113; G0378; G0463; J0330; J0690; J0885; J1815; J2250; J2405; J2704; J7507; J7517